=== PATIENT | male | born 1935 | race Caucasian/White ===

== ENCOUNTER 2023-06-30 04:26 | Inpatient (IN) | payer MEDICARE, OTHER, SELFPAY ==
[2023-06-30] VITALS (20 sets, daily range): BP systolic 85–145; BP diastolic 54–116; PULSE 84–140; RESP 19–28; TEMP 36.6–37.3; O2SAT 94–99; BMI 24.7
--- NOTE | ~2023-06-30 | XR_ITS ---
EXAMINATION: XR chest 1V portable DATE: 06/30/2023 05:16 INDICATION: Chest pain. Palpitations. TECHNIQUE: A single frontal view of the chest was obtained. COMPARISON: Chest 2 views 12/26/17 FINDINGS: There are calcified pleural plaques bilaterally. There are airspace opacities in the mid an d lower lung zones. No pleural effusion or pneumothorax. Cardiomegaly is noted. IMPRESSION: 1. Airspace opacities in the mid and lower lung zones, consistent with atelectasis/scarring versus pn eumonia. 2. Calcified pleural plaques, which may be seen with asbestosis exposure. 3. Cardiomegaly. Reviewed, dictated and finalized at location E. IMPRESSION: 1. Airspace opacities in the mid and lower lung zones, consistent with atelecta sis/scarring versus pneumonia. 2. Calcified pleural plaques, which may be seen with asbestosis exposure. 3. Cardiomegaly.
--- NOTE | ~2023-06-30 | XR_ITS ---
MODIFIED ESOPHAGRAM HISTORY: Aspiration pneumonia TECHNIQUE: Modified barium esophagram was performed on 07/02/2023. I administered fluoroscopy and per formed the exam with speech pathologist. Patient was seated for lateral fluoroscopic imaging for ing estion of thin liquids, pudding, solids and quantified amounts, followed by thin liquids in uncontrol led amounts. This was recorded on tape. A single fluoroscopic spot image was also recorded. The DAP f or this procedure was 1.602 Gycm2. The amount of fluoroscopy time used during this procedure was 2.6 minutes. FINDINGS: Oral stage: Adequate function. Pharyngeal stage: Reduced laryngeal elevation and tongue base retraction. There is laryngeal penetrat ion without aspiration with uncontrolled thin liquids and with pudding consistency both with and with out head flexion. Cervical/esophageal stage: Adequate function. IMPRESSION: Pharyngeal dysphagia with laryngeal penetration but without aspiration. Please correlate with speech pathologist findings and specific feeding recommendations. Reviewed, dictated and finalized at location A. IMPRESSION: Pharyngeal dysphagia with laryngeal penetration but without aspirat ion. Please correlate with speech pathologist findings and specific feeding re commendations.
--- NOTE | 2023-06-30 04:30 | ECG_ITS ---
Measurements Intervals Bennett Rate: 132 P: NM: 0 QRS: -25 QRSD: 89 T: 178 QT: 289 QTc: 428 Interpretive Statements ATRIAL FIBRILLATION WITH RAPID VENTRICULAR RESPONSE ST DEVIATION AND T-WAVE ABNORMALITY, CONSIDER ISCHEMIA Electronically Signed On 06-30-2023 12:59:42 CDT by Finn Calderon M.D.
[2023-06-30] MEDS: dilTIAZem HCl INJ 25 MG/5 ML VIAL 10 MG IV PUSH (04:39)
[2023-06-30] MEDS: ASPIRIN 81 MG CHEWABLE TABLET 324 MG PO (04:39)
[2023-06-30] MEDS: dilTIAZem 100 MG/100 ML 100 MG/100 ML BAG IV CONT (04:41)
--- NOTE | 2023-06-30 04:43 | ED.GENADULT ---
HPI - General Adult General Chief complaint: Chest Pain Stated complaint: cp Time Seen by Provider: 06/30/23 04:29 History of Present Illness HPI narrative: Patient 79-year-old gentleman who presents the emergency department with chief complaint of chest discomfort. Patient reports that he feels as though he has to take a deep breath and movement of the tightness in his chest whenever he takes a deep breath. Patient states that has no prior history of cardiac disease reports no prior history of a dysrhythmia. When EMS picked him up they found that he had a heart rates in the 190s he was given adenosine which slowed his heart rate down into the 150s with atrial fibrillation rhythm. Related Data Home Medications Medication Instructions Recorded Confirmed latanoprost 0.005 % eye drops drp 06/30/23 Allergies Allergy/AdvReac Type Severity Reaction Status Date / Time No Known Allergies Allergy Unknown Verified 06/30/23 04:33 Review of Systems Review of Systems: A 10 system review of systems was completed on the patient and is negative except for what is stated in the HPI. Nursing and ancillary documentation was reviewed. [facility] Past Medical History Medical History History of prostate cancer (2007) Hx of malignant neoplasm of colon Surgical History Surgical History History of cholecystectomy (2007) Family History Family History Mother Heart disease Social History Social History Smoking status: Former smoker Second hand tobacco smoke exposure: No Alcohol intake: current Drinks per week: 7 Alcohol use details: 1 glass wine daily Substance use: never Substance use type: does not use Living arrangements: with family Occupation/Education: retired Gender identity (if verbalized by the patient): Male Sexual Orientation (if Verbalized by the Patient): Straight or Heterosexual Spiritual care concerns: No Agree to blood products: Yes Exam Narrative: GENERAL: Well-appearing, well-nourished, and in no acute distress. HEAD: Normocephalic, atraumatic. EYES: PERRLA and EOMI. ENT: Nares clear, no rhinorrhea or epistaxis. Mucous membranes moist. NECK: Supple. CHEST: Clear to auscultation. No respiratory distress. HEART: Tachycardic rate and irregular rhythm. No murmur heard. Normal peripheral pulses. ABDOMEN: Soft, nontender, nondistended, normal active bowel sounds. EXTREMITIES: Normal range of motion. No edema. SKIN: Warm, dry, no rash. NEURO: No focal deficits. Alert and oriented x3. PSYCH: Normal mood and affect. Course Vital Signs Vital signs: Vital Signs Temperature 37.1 C 06/30/23 04:24 Pulse Rate 131 H 06/30/23 04:24 Respiratory Rate 23 H 06/30/23 04:24 Blood Pressure 130/108 H 06/30/23 04:24 Pulse Oximetry 97 06/30/23 04:24 Oxygen Delivery Room Air 06/30/23 04:24 Temperature 37.1 C 06/30/23 04:24 Pulse Rate 97 06/30/23 04:46 Respiratory Rate 22 H 06/30/23 04:45 Blood Pressure 119/78 06/30/23 04:46 Pulse Oximetry 95 06/30/23 04:45 Oxygen Delivery Room Air 06/30/23 04:31 Medical Decision Making [facility] Narrative Medical decision making narrative: Differential diagnosis electrolyte abnormality, ACS, new onset A-fib Patient was in atrial fibrillation with rapid ventricular response upon initial arrival. 10 mg of Cardizem were given to the patient and the patient was started on a Cardizem drip This is provided rate control Oratory studies were obtained which showed CBC within normal limits electrolytes showed a creatinine of 1.4 troponin was less than 0.012 BNP was 2060 Case was discussed with the hospitalist the patient was admitted to the hospital. Vital Signs Vital Sign
[2023-06-30 04:51] LABS: Basophils Absolute Auto 0.1 K/mm3 (0.0-0.1); Basophils Percent Auto 0.4 % (0.2-1.2); Eosinophils Percent Auto 0.2 % (0-4.4); Hemoglobin 16.3 g/dL (14.0-18.0); Immature Granulocyte Absolute 0.07 K/mm3 (0.00-0.031); Immature Granulocyte Percent A 0.6 % (0-0.5); Lymphocytes Absolute Auto 0.76 K/mm3 (0.9-3.2); Mean Corpuscular HGB Conc 33.3 g/dl (32-36); Mean Corpuscular Hemoglobin 28.5 pg (26-34); Mean Corpuscular Volume 85.8 fl (80-100); Mean Platelet Volume 10.5 fl (7.4-10.4); Monocytes Absolute Auto 0.9 K/mm3 (0.1-0.6); Monocytes Percent Auto 6.7 % (2.6-8.5); Neutrophils Absolute Auto 10.9 K/mm3 (1.3-6.7); Neutrophils Percent Auto 86.1 % (45.5-73.1); Platelet Count Result 245 k/mm3 (150-375); Red Blood Count 5.71 M/mm3 (4.6-6.20); Red Cell Distribution Width 13.8 % (11.5-14.5); White Blood Count 12.7 K/mm3 (4.5-10.0)
[2023-06-30 04:53] LABS: Alanine Aminotransferase 24 U/L (6-50); Albumin Level 4.8 g/dL (3.5-5.1); Alkaline Phosphatase 68 U/L (38-126); Anion Gap 8 mmol/L (8-16); Aspartate Amino Transferase 32 U/L (17-59); Bilirubin,Total 1.3 mg/dL (0.2-1.3); Blood Urea Nitrogen 16 mg/dL (9-20); Calcium 9.1 mg/dL (8.4-10.2); Carbon Dioxide 28 mmol/L (22-30); Chloride 100 mmol/L (98-107); Estimated CRCL calculation 33 ml/min; Estimated Glomerular Filt Rate 48; Glucose 132 mg/dL (65-110); Lipase 59 U/L (23-300); Potassium 4.6 mmol/L (3.4-5.0); Sodium 136 mmol/L (137-145)
[2023-06-30 05:02] LABS: INR 0.9; NT Pro B Type Natriuretic Pept 2060 pg/mL (19.9-100); Prothrombin Time 12.8 Seconds (11.1-14.7)
[2023-06-30 05:03] LABS: Partial Thromboplastin Time 32.4 SECONDS (22.3-36.8)
[2023-06-30 05:05] LABS: Troponin I < 0.012 ng/mL (0.000-0.034)
[2023-06-30] MEDS: HEPARIN SOD/D5W 100 UNITS/ML 25,000 UNITS/250 ML BAG 12 UNITS IV CONT (05:50)
[2023-06-30] MEDS: HEPARIN SODIUM 5,000 UNITS/ML VIAL 5500 UNITS IV PUSH (05:50)
--- NOTE | 2023-06-30 05:53 | PM.IMHP ---
H&P: HPI History of Present Illness Date/Time: 06/30/23 05:53 Chief Complaint: Chest pain shortness over Narrative: 79-year-old gentleman who has past medical history of colon cancer prostate cancer presents with chest pain and shortness of breath. Shortness of breath is worse with laying down. When EMS arrived at his home he was noted to have heart rate of 190 he received adenosine. On arrival to the hospital he was noted to have atrial fibrillation. He has been started on rate control with Cardizem and also anticoagulation with heparin. Patient states that when he takes deep breath he feels some pain towards his neck from his chest. He denies nausea vomiting headache dizziness. He denies fever chills sweating abdominal pain during bowel symptoms The liver is not a good historian as he has difficulty expressing himself Review of Systems Review of Systems: All systems reviewed & are unremarkable except as noted in HPI and below Constitutional: Constitutional: Reports as per HPI Cardiovascular: Cardiovascular: Reports chest pain and Reports palpitations PMFSH Past Medical History Medical History History of prostate cancer (2007) Hx of malignant neoplasm of colon Surgical History Surgical History History of cholecystectomy (2007) Family History Family History Mother Heart disease Social History Social History Smoking status: Former smoker Second hand tobacco smoke exposure: No Alcohol intake: current Drinks per week: 7 Alcohol use details: 1 glass wine daily Substance use: never Substance use type: does not use Living arrangements: with family Occupation/Education: retired Gender identity (if verbalized by the patient): Male Sexual Orientation (if Verbalized by the Patient): Straight or Heterosexual Spiritual care concerns: No Agree to blood products: Yes Meds Home Medications and Allergies Home Medications Medication Instructions Recorded Confirmed Type latanoprost 0.005 % eye drops drp 06/30/23 History Allergies Allergy/AdvReac Type Severity Reaction Status Date / Time No Known Allergies Allergy Unknown Verified 06/30/23 04:33 Vital Signs Vital Signs - 24 hr 06/30/23 04:24 06/30/23 04:31 06/30/23 04:31 Temperature 98.7 F Pulse Rate 131 H 140 H Respiratory Rate 23 H 27 H Blood Pressure 130/108 H 145/116 H Pulse Oximetry 97 96 96 Oxygen Delivery Room Air Room Air 06/30/23 04:41 06/30/23 04:45 06/30/23 04:31 Temperature Pulse Rate 133 H 98 135 H Respiratory Rate 22 H 19 Blood Pressure 145/116 H 145/116 H Pulse Oximetry 95 Oxygen Delivery 06/30/23 04:32 06/30/23 04:46 Temperature Pulse Rate 133 H 97 Respiratory Rate 24 H Blood Pressure 119/78 Pulse Oximetry Oxygen Delivery Exam Narrative: General : alert awake oriented not in distress HEENT: PERRLA extraocular movements intact Neck : supple no JVD Heart : S1 and S2 irregularly irregular tachy Chest : bilateral air entry no wheezing or crackles Abdomen : soft nontender bowel sounds present Extremities : no ankle edema Skin : no erythema or redness noted PATHOLOGY SECRETARY : no new neurological deficit H&P: Results Labs Labs: Short CBC 06/30/23 Range/Units 04:36 WBC 12.7 H (4.5-10.0) K/mm3 Hgb 16.3 (14.0-18.0) g/dL Hct 49.0 (42.0-52.0) % Plt Count 245 (150-375) k/mm3 BMP 06/30/23 04:36 Sodium 136 L Potassium 4.6 Chloride 100 Carbon Dioxide 28 BUN 16 Creatinine 1.40 H Glucose 132 H Calcium 9.1 Cardiac Enzymes 06/30/23 Range/Units 04:36 Troponin I < 0.012 (0.000-0.034) ng/mL Liver Function 06/30/23 Range/Units 04:36 Total Bilirubin 1.3 (0.2-1.3
--- NOTE | 2023-06-30 06:47 | ADMGEN ---
This patient, Cesar Jones, was admitted to IMU Room 231-01. Patient/family oriented to hospital policies and general routines including ID bracelet, bed and alarms, visiting hours, pain management, procedures, bathroom and other care routines, personal items, smoking policy, room service/diet, and visiting hours. Information on how to activate the Rapid Response Team has been discussed. Patient/Family are encouraged to report perceived risks to care and to ask questions if they do not understand what they are told or what they should do.
[2023-06-30 07:50] LABS: Basophils Percent Auto 0.3 % (0.2-1.2); Hemoglobin 15.4 g/dL (14.0-18.0); Immature Granulocyte Absolute 0.07 K/mm3 (0.00-0.031); Immature Granulocyte Percent A 0.5 % (0-0.5); Lymphocytes Absolute Auto 0.84 K/mm3 (0.9-3.2); Lymphocytes Percent Auto 6.1 % (18.3-44.2); Mean Corpuscular HGB Conc 32.8 g/dl (32-36); Mean Corpuscular Hemoglobin 28.2 pg (26-34); Mean Corpuscular Volume 85.9 fl (80-100); Mean Platelet Volume 10.7 fl (7.4-10.4); Monocytes Absolute Auto 1.1 K/mm3 (0.1-0.6); Monocytes Percent Auto 7.6 % (2.6-8.5); Neutrophils Absolute Auto 11.8 K/mm3 (1.3-6.7); Neutrophils Percent Auto 85.5 % (45.5-73.1); Platelet Count Result 235 k/mm3 (150-375); Red Blood Count 5.47 M/mm3 (4.6-6.20); Red Cell Distribution Width 13.7 % (11.5-14.5); White Blood Count 13.8 K/mm3 (4.5-10.0)
[2023-06-30 08:49] LABS: Troponin I < 0.012 ng/mL (0.000-0.034)
[2023-06-30] MEDS: carvediloL 3.125 MG TABLET PO (09:40)
[2023-06-30] MEDS: PANTOPRAZOLE SODIUM IV 40 MG VIAL IV PUSH (09:40)
[2023-06-30] MEDS: FUROSEMIDE INJ 40 MG/4 ML VIAL IV PUSH (09:43)
[2023-06-30] MEDS: VALSARTAN 40 MG TABLET PO (10:06)
[2023-06-30 10:38] LABS: Appearance Urine Clear (Clear); Bacteria Urine None Seen /hpf; Bilirubin Urine Negative (Negative); Blood Urine Trace (Negative); Color Urine Yellow (Yellow); Glucose Urine UA Negative (Negative); Ketones Urine 1+ mg/dL (Negative); Leukocyte Esterase Ur Negative LEU/UL (Negative); Nitrate Urine Negative (Negative); Non Pathogenic Casts 0-2; Protein Urine Negative (Negative); RBC Urine 0-2 /hpf (0-2); Specific Grav Ur 1.017 (1.001-1.035); Squamous Epithelial Cell Urine None seen /hpf (Few); Urobilinogen Urine 0.2 mg/dL (<2.0); WBC Urine 0-5 /hpf
[2023-06-30 10:44] LABS: Add Urine Microscopic? YES
--- NOTE | 2023-06-30 11:15 | PM.CNCAR ---
Assessment and Plan Assessment and plan (1) Atrial fibrillation with rapid ventricular response: Code(s): I48.91 - Unspecified atrial fibrillation Status: Acute Assessment and Plan: 87-year-old male with no known prior cardiac history. Admitted to the hospital with complaints of pleuritic chest pain. He was found to be in atrial fibrillation with RVR. -heart rate has improved with IV diltiazem which will be continued for now. Add metoprolol tartrate with holding parameters. -initiate anticoagulation with apixaban, dose may need to be modified based on renal function. -echocardiogram with Doppler is pending. -check thyroid panel -telemetry monitoring (2) Pleuritic chest pain: Code(s): R07.81 - Pleurodynia Status: Acute Assessment and Plan: Patient has been coughing for last several months, and there is suggestion of possible respiratory tract infection. Appropriate antibiotics as per primary team. Also undergoing workup for possible PE. (3) Renal insufficiency: Code(s): N28.9 - Disorder of kidney and ureter, unspecified Status: Acute Assessment and Plan: Monitor electrolytes and renal function. Management per primary team. History of Present Illness History of Present Illness Consult date/time: 06/30/23 11:15 Requesting physician: Derek Bender MD Reason For Visit: New Onset A-Fib with RVR Narrative: 87-year-old male with no known prior cardiac history. Patient presented to [facility] Emergency Room on 06/30/2023 with complaints of chest tightness that started early in the morning. He states that his chest discomfort gets worse with deep inspiration. Patient states that he has been coughing with scanty expectoration for months. Denied any palpitations, dizziness or syncope. He denies any known prior cardiac history including any history of clinical [place], angina, heart failure or any known arrhythmias. Patient's son was present in the patient's room states that his father does not usually see a physician on regular basis. Per ER notes, EMS found patient in tachycardia with heart rate in 190s, was apparently given adenosine with improvement of heart rate to 150s and the rhythm showed atrial fibrillation with RVR. EKG at presentation on my personal interpretation showed AFib with RVR, ventricular rate 132 beats per minute, ST-T abnormality. Chest x-ray showed airspace opacities in the mid and lower lung zones, consistent with atelectasis/scarring versus pneumonia, Calcified pleural plaques, which may be seen with asbestosis exposure, Cardiomegaly. Troponin x3 negative. NT proBNP elevated at 2060. Patient was initiated on IV diltiazem 5 mg per hour, with improvement in heart rate to 110s. Review of Systems Review of Systems: General: Negative for fever, chills, fatigue Psychological: Negative for anxiety, depression Ophthalmic: negative for loss of vision ENT: Negative for epistaxis, headaches Allergy and immunology: Negative for hives, nasal congestion Hematologic and lymphatic: Negative for overt bleeding problems Endocrine: Negative for hot flashes, palpitations Respiratory: Positive for cough with scanty expectoration, no hemoptysis; positive for dyspnea Cardiovascular: Positive for pleuritic chest pain Gastrointestinal: Negative for abdominal pain, nausea, vomiting, hematochezia Musculoskeletal: Negative for myalgia, joint pains Neurological: Negative for weakness Dermatological: Negative for rash, skin discoloration PMFSH Past Medical History Medical History History of prostate cancer (2007) Hx of malignant neoplasm of colon Surgical History Surgical History History of cholecystectomy (2007) Family History Family History Mother Heart disease Social History Social His
[2023-06-30 11:20] LABS: Troponin I < 0.012 ng/mL (0.000-0.034)
--- NOTE | 2023-06-30 11:31 | PM.IMPN ---
Progress Note: A&P Assessment and Plan (1) CKD (chronic kidney disease): Code(s): N18.9 - Chronic kidney disease, unspecified Status: Acute (2) Atrial fibrillation, new onset: Code(s): I48.91 - Unspecified atrial fibrillation Status: Acute (3) Atrial fibrillation with rapid ventricular response: Code(s): I48.91 - Unspecified atrial fibrillation Status: Acute Plan 87M w/ prostate cancer, has not seen a physician in a long time presents with pleuritic chest pain for a few weeks but worsened which cause him to see further eval. found to be in a fib w/ RVR. cardiology assisting, switching heparin to eliquis, diltiazem gtt still on. pending echo. trop negative. EKG non ischemic. CXR w/ some infiltrates vs pulm edema. BNP 1999 but clinically euvolemic, likely all 2/2 to RVR. check pro calcitonin, tsh, and d dimer. if d dimer positive check LE US with VQ scan. starting rocephin and zithromax for CAP. Subjective Date/time seen: 06/30/23 11:31 Interval history: pt reports improved symptoms but still with tight chest pain at ribs when taking deep breath Review of Systems Review of Systems: All systems reviewed & are unremarkable except as noted in HPI and below Exam Const: General: comfortable and no acute distress Resp: Effort & Inspection: normal respiratory effort Auscultation: crackles (scant/ diffuse) Cardio: Rate: tachycardic Rhythm: abnormal rhythm GI: Inspection: non-distended Auscultation: normal bowel sounds Extrem: General: no edema Objective Data Vital Signs Vital Signs: Vital Signs - 24 hr 06/30/23 04:24 06/30/23 04:31 06/30/23 04:31 Temperature 98.7 F Pulse Rate 131 H 140 H Respiratory Rate 23 H 27 H Blood Pressure 130/108 H 145/116 H Pulse Oximetry 97 96 96 Oxygen Delivery Room Air Room Air 06/30/23 04:41 06/30/23 04:45 06/30/23 04:31 Temperature Pulse Rate 133 H 98 135 H Respiratory Rate 22 H 19 Blood Pressure 145/116 H 145/116 H Pulse Oximetry 95 Oxygen Delivery 06/30/23 04:32 06/30/23 04:46 06/30/23 06:59 Temperature 97.8 F Pulse Rate 133 H 97 102 H Respiratory Rate 24 H 22 H Blood Pressure 119/78 127/95 H Pulse Oximetry 97 Oxygen Delivery 06/30/23 07:50 06/30/23 09:40 Temperature 98.4 F Pulse Rate 102 H 102 H Respiratory Rate 28 H Blood Pressure 108/70 Pulse Oximetry 95 Oxygen Delivery Meds/Results Medications: Active Medications Generic Name Dose Route Start Last Admin Trade Name Freq PRN Reason Stop Dose Admin Acetaminophen 650 mg 06/30/23 06:00 Acetaminophen 325 Mg Tablet PO Q8H PRN Mild Pain (1-3) or Fever Apixaban 5 mg 06/30/23 21:00 Apixaban 5 Mg Tablet PO Q12HR [facility] Aspirin 81 mg 07/01/23 08:00 Aspirin 81 Mg Chewable Tablet PO DAILY@0800 [facility] Heparin Sodium (Porcine) 2,500 units 06/30/23 05:32 Heparin Sodium 5,000 Units/Ml Vial IV PUSH PRN PRN aPTT 55 - 70 seconds Diltiazem HCl 100 mg in 100 mls @ 5 mls/hr 06/30/23 04:29 06/30/23 04:41 Cardizem 100 Mg/100 Ml IV CONT 07/01/23 00:28 5 mg/hr .Q20H STA 5 mls/hr Administration Protocol 5 MG/HR Heparin Sodium/Dextrose 25,000 units in 250 mls @ 12 mls/hr 06/30/23 05:35 06/30/23 05:50 Heparin Sodium/D5w 100 Units/Ml IV CONT 1,200 units/hr .[id number] GELACIO 12 mls/hr Administration Protocol 1,200 UNITS/HR Ceftriaxone Sodium 2 gm in 100 mls @ 200 mls/hr 06/30/23 11:30 Rocephin 2 Gm/Ns 100 Ml IVPB Q24H GELACIO Azithromycin 500 mg in 250 mls @ 250 mls/hr 06/30/23 11:28 Zithromax IVPB 06/30/23 12:27 ONCE ONE Azithromycin 250 mg/ Dextrose 250 mls @ 250 mls/hr 07/01/23 05:00 IVPB Q24H [facility] Melatonin 5 mg 06/30/23 06:00 Melatonin 5 Mg Tablet PO HS PRN Insomnia Metoprolol Tartrate 25 mg 06/30/23 21:00 Metoprolol Tartrate 25 Mg Tablet PO Q12HR GELACIO Morphine Sulfate 2 mg 06/30/23 06
[2023-06-30 12:55] LABS: D Dimer 0.48 ug/mL (<0.48)
[2023-06-30] MEDS: cefTRIAXone 2 GM/NS 100 ML 2 GM/100 ML BAG IVPB (13:11)
[2023-06-30 13:20] LABS: Procalcitonin 0.5 ng/mL
[2023-06-30 13:30] LABS: Influenza A QL RT-PCR Negative (Negative); Influenza B QL RT-PCR Negative (Negative); RSV RNA, RT-PCR Negative (Negative); SARS-CoV-2 RNA PCR Negative (Negative)
[2023-06-30] MEDS: AZITHROMYCIN 500 MG/NS 250 ML 500 MG/250 ML BAG 250 MG IVPB (14:01)
[2023-06-30] MEDS: APIXABAN 5 MG TABLET PO (21:39)
[2023-07-01] VITALS (18 sets, daily range): BP systolic 91–111; BP diastolic 59–72; PULSE 50–108; RESP 16–20; TEMP 36.1–36.6; O2SAT 95–98
[2023-07-01 04:36] LABS: Basophils Percent Auto 0.4 % (0.2-1.2); Eosinophils Absolute Auto 0.1 K/mm3 (0-0.3); Eosinophils Percent Auto 0.9 % (0-4.4); Hemoglobin 14.7 g/dL (14.0-18.0); Immature Granulocyte Absolute 0.04 K/mm3 (0.00-0.031); Immature Granulocyte Percent A 0.4 % (0-0.5); Lymphocytes Absolute Auto 1.74 K/mm3 (0.9-3.2); Lymphocytes Percent Auto 16.9 % (18.3-44.2); Mean Corpuscular HGB Conc 34.2 g/dl (32-36); Mean Corpuscular Hemoglobin 28.7 pg (26-34); Mean Platelet Volume 10.7 fl (7.4-10.4); Monocytes Absolute Auto 0.9 K/mm3 (0.1-0.6); Neutrophils Absolute Auto 7.4 K/mm3 (1.3-6.7); Neutrophils Percent Auto 72.4 % (45.5-73.1); Platelet Count Result 202 k/mm3 (150-375); Red Blood Count 5.12 M/mm3 (4.6-6.20); Red Cell Distribution Width 13.5 % (11.5-14.5); White Blood Count 10.3 K/mm3 (4.5-10.0)
[2023-07-01 04:53] LABS: Anion Gap 9 mmol/L (8-16); Blood Urea Nitrogen 18 mg/dL (9-20); Calcium 8.3 mg/dL (8.4-10.2); Carbon Dioxide 23 mmol/L (22-30); Chloride 103 mmol/L (98-107); Estimated CRCL calculation 32 ml/min; Estimated Glomerular Filt Rate 52; Glucose 118 mg/dL (65-110); Magnesium 2.3 mg/dL (1.6-2.3); Potassium 3.7 mmol/L (3.4-5.0); Sodium 135 mmol/L (137-145)
[2023-07-01 05:04] LABS: Procalcitonin 0.6 ng/mL
--- NOTE | 2023-07-01 06:02 | ECHO_ITS ---
Patient Info Name: Cesar Jones Age: 87 years : 1935 Gender: Male Ht: 70 in Wt: 150 lbs BSA: 1.83 m2 HR: 71 bpm BP: 108 / 63 mmHg Heart Rhythm: Atrial Fibrillation Technical Quality: Fair Exam Date: 07/01/2023 10:35 AM Exam Location: [facility] Patient Status: Inpatient Admit Date: 07/01/2023 Staff Ordering Physician: Osman Mora MD Quick Sketch Artist: Eloise Ashley RDCS Attending Provider: Osman Mora MD Referring Physician: Morgan NUÑEZ; Exam Type: CA echo doppler color flow Study Info Indications - AFIB, CHF Complete two-dimensional, color flow and Doppler transthoracic echocardiogram is performed. Summary 1. Complete two-dimensional, color flow and Doppler transthoracic echocardiogram is performed. 2. Left ventricular chamber dimension is normal. 3. Left ventricular systolic function is moderately reduced, estimated at 35-40%. 4. There is no increased left ventricular wall thickness. 5. Right ventricular systolic function is reduced. TAPSE 1.2. 6. Right ventricular chamber dimension is normal. 7. Right atrial chamber dimension is moderate to severely enlarged. 8. There is trace mitral valve regurgitation. 9. There is mild tricuspid valve regurgitation. 10. No pulmonary hypertension, estimated pulmonary arterial systolic pressure is 30 mmHg. 11. The mitral valve annulus is moderately calcified. 12. There is no aortic valve stenosis. Left Ventricle Left ventricular chamber dimension is normal. Left ventricular systolic function is moderately reduced, estimated at 35-40%. There is no increased left ventricular wall thickness. Right Ventricle Right ventricular chamber dimension is normal. Right ventricular systolic function is reduced. TAPSE 1.2. Linear artifact in right ventricle suggestive of catheter(s), pacemaker lead(s), or ICD lead(s). Left Atria Left atrial chamber dimension is mildly enlarged. Right Atria Right atrial chamber dimension is moderate to severely enlarged. Aortic Valve The aortic valve is probable trileaflet. There is mild aortic valve sclerosis. There is no aortic valve stenosis. There is no aortic valve regurgitation. Pulmonic Valve The pulmonic valve is not well visualized. Mitral Valve The mitral valve has thickened leaflets. There is trace mitral valve regurgitation. The mitral valve annulus is moderately calcified. Tricuspid Valve The tricuspid valve leaflets are normal. There is mild tricuspid valve regurgitation. No pulmonary hypertension, estimated pulmonary arterial systolic pressure is 30 mmHg. Pericardium/Pleural The pericardium appears normal. There is no pericardial effusion. Inferior Vena Cava Normal inferior vena cava with <50% collapse upon inspiration consistent with elevated right atrial pressure, 10 mmHg. Aorta The aortic root size at the sinus of Valsalva is normal. The prox ascending aorta size is normal. There is mild aortic atherosclerosis. Left Ventricular Outflow Tract Name Value Normal LVOT 2D LVOT Diameter 2.0 cm LVOT Doppler LVOT Peak Gradient 1 mmHg LVOT Mean Gradient 0 mmHg LVOT VTI 9 cm
--- NOTE | 2023-07-01 07:45 | PC.NURSE ---
Resting in bed resp even and nonlabored. Congestion with productive cough. O2 sat 74% on 3L. Increased to 12L high flow NC with O2 sats 97%.
[2023-07-01] MEDS: dilTIAZem 100 MG/100 ML 100 MG/100 ML BAG IV CONT (09:19)
[2023-07-01] MEDS: METOPROLOL TARTRATE 25 MG TABLET PO (09:20)
[2023-07-01] MEDS: ASPIRIN 81 MG CHEWABLE TABLET PO (09:20)
[2023-07-01] MEDS: PANTOPRAZOLE SODIUM IV 40 MG VIAL IV PUSH (09:20)
[2023-07-01] MEDS: APIXABAN 5 MG TABLET PO ×2 (09:20→21:10)
--- NOTE | 2023-07-01 12:30 | PM.PNCARD ---
Progress Note: A&P Assessment and Plan (1) Atrial fibrillation with rapid ventricular response: Code(s): I48.91 - Unspecified atrial fibrillation <PRISCILLA Gonzalez - Last Filed: 07/01/23 13:23> Status: Acute <PRISCILLA Gonzalez - Last Filed: 07/01/23 13:23> Assessment and Plan: 87-year-old male with no known prior cardiac history. Admitted to the hospital with complaints of pleuritic chest pain. He was found to be in atrial fibrillation with RVR. -heart rate has improved with IV diltiazem and p.o. metoprolol. Will discontinue diltiazem gtt and increase metoprolol dose. If rate remains controlled, would anticipate discharge tomorrow. -initiate anticoagulation with apixaban, dose may need to be modified based on renal function. -echocardiogram with Doppler is pending. -telemetry monitoring <PRISCILLA Gonzalez - Last Filed: 07/01/23 13:23> (2) Pleuritic chest pain: Code(s): R07.81 - Pleurodynia <PRISCILLA Gonzalez - Last Filed: 07/01/23 13:23> Status: Acute <PRISCILLA Gonzalez - Last Filed: 07/01/23 13:23> Assessment and Plan: Patient has been coughing for last several months, and there is suggestion of possible respiratory tract infection. Appropriate antibiotics as per primary team. Also undergoing workup for possible PE. <PRISCILLA Gonzalez - Last Filed: 07/01/23 13:23> (3) Renal insufficiency: Code(s): N28.9 - Disorder of kidney and ureter, unspecified <PRISCILLA Gonzalez - Last Filed: 07/01/23 13:23> Status: Acute <PRISCILLA Gonzalez - Last Filed: 07/01/23 13:23> Assessment and Plan: Monitor electrolytes and renal function. Management per primary team. <PRISCILLA Gonzalez - Last Filed: 07/01/23 13:23> Assessment and Plan: ATTENDING ADDENDUM: I agree with the above documentation and plan of care as outlined. <Micha Clement MD - Last Filed: 07/01/23 15:37> Subjective Date/time seen: 07/01/23 12:30 <PIRSCILLA Gonzalez - Last Filed: 07/01/23 13:23> Interval history: Cardiology follow up for Afib Rate controlled on low dose IV diltiazem and low dose metoprolol. No longer having chest pain with deep breathing. No palpitations, shortness of breath. <PRISCILLA Gonzalez - Last Filed: 07/01/23 13:23> Review of Systems Review of Systems: General: Negative for fever, chills, fatigue Psychological: Negative for anxiety, depression Ophthalmic: negative for loss of vision ENT: Negative for epistaxis, headaches Allergy and immunology: Negative for hives, nasal congestion Hematologic and lymphatic: Negative for overt bleeding problems Endocrine: Negative for hot flashes, palpitations Respiratory: Positive for cough with scanty expectoration, no hemoptysis; positive for dyspnea Cardiovascular: Positive for pleuritic chest pain Gastrointestinal: Negative for abdominal pain, nausea, vomiting, hematochezia Musculoskeletal: Negative for myalgia, joint pains Neurological: Negative for weakness Dermatological: Negative for rash, skin discoloration <PRISCILLA Gonzalez - Last Filed: 07/01/23 13:23> Exam Const: General: comfortable, no acute distress, alert and awake <PRISCILLA Gonzalez - Last Filed: 07/01/23 13:23> Orientation/consciousness: patient oriented x3 <PRISCILLA Gonzalez - Last Filed: 07/01/23 13:23> HENMT: Head: normal to inspection <PRISCILLA Gonzalez - Last Filed: 07/01/23 13:23> Eyes: General: appearance normal, both eyes and all related structures <PRISCILLA Gonzalez - Last Filed: 07/01/23 13:23> Pupils: Equal, round and reactive pupils present <PRISCILLA Gonzalez - Last Filed: 07/01/23 13:23> Neck: Neck: normal visual inspection, supple and no JVD <PRISCILLA Gonzalez - Last Filed: 07/01/23 13:23> Carotids: normal carotid upstroke <PRISCILLA Gonzalez - Last Filed: 07/01/23 13:23> Resp: Effort & Inspection: normal r
[2023-07-01] MEDS: cefTRIAXone 2 GM/NS 100 ML 2 GM/100 ML BAG IVPB (14:01)
[2023-07-01] MEDS: METOPROLOL TARTRATE TAB 25 MG, METOPROLOL TARTRATE TAB 12.5 MG 37.5 MG PO ×2 (14:02→21:14)
--- NOTE | 2023-07-01 14:28 | PM.IMPN ---
Progress Note: A&P Assessment and Plan (1) Renal insufficiency: Code(s): N28.9 - Disorder of kidney and ureter, unspecified Status: Acute (2) Pleuritic chest pain: Code(s): R07.81 - Pleurodynia Status: Acute (3) CKD (chronic kidney disease): Code(s): N18.9 - Chronic kidney disease, unspecified Status: Acute (4) Atrial fibrillation, new onset: Code(s): I48.91 - Unspecified atrial fibrillation Status: Acute (5) Atrial fibrillation with rapid ventricular response: Code(s): I48.91 - Unspecified atrial fibrillation Status: Acute (6) Dermatitis: Code(s): L30.9 - Dermatitis, unspecified Status: Acute (7) Dyspnea: Code(s): R06.00 - Dyspnea, unspecified Status: Acute (8) Wheezing: Code(s): R06.2 - Wheezing Status: Acute (9) Primary open-angle glaucoma, bilateral, mild stage: Code(s): H40.1131 - Primary open-angle glaucoma, bilateral, mild stage Status: Acute Plan 1. afib rvr appreciate cardiology consultation previously on dilt drip and po metoprolol. now rate controlled, switched to PO metop 37.5 mg q8 tartrate pleuritic cp gone on eliquis now echo with doppler pending 2. Pleuritic cp asp pneumonia vs afib rvr swallow eval with ST abnormalities on cxr stopped rocephin/azithromycin, started augmentin d dimer neg 3. Acute confusion related to his [place] hx of dementia, needs f/u with PCP 4. hx of malignancy (prostate +/ colon) f/u pea, cea, ca19-9 talked with son today for ~ 25 min after evaluation Time Spent With Patient Time: 1 hr Subjective Date/time seen: 07/01/23 14:28 Interval history: pt was feeling not heard this morning. reports [place] and was confused with discussion with nurses. apparently called 911 instead of calling 91 to make an outside call. Per son, pt was confused in his room walking around disoriented. On my exam, pt is alert, oriented, aox4, just [place]. Review of Systems Review of Systems: no complaints. Exam Narrative: Const:?? General: comfortab le and no acute di stress Resp:?? Effort & Inspectio n: normal respirat ory effort? Auscul tation: crackles ( scant/ diffuse) Cardio:?? Rate: tachycardic? Rhythm: abnormal rhythm GI:?? Inspection: non-di stended? Auscultat ion: normal bowel sounds Extrem:?? General: no edema Objective Data Vital Signs Vital Signs: Vital Signs - 24 hr 06/30/23 16:00 06/30/23 18:20 06/30/23 16:00 Temperature 98.3 F Pulse Rate 94 Respiratory Rate 20 Blood Pressure 85/54 L 131/79 Pulse Oximetry 94 97 Oxygen Delivery Room Air 06/30/23 16:00 06/30/23 18:00 06/30/23 20:00 Temperature 98.4 F Pulse Rate 87 93 87 Respiratory Rate 20 Blood Pressure 111/71 Pulse Oximetry 95 Oxygen Delivery 06/30/23 20:00 06/30/23 20:00 06/30/23 21:40 Temperature Pulse Rate 87 93 95 Respiratory Rate 20 Blood Pressure Pulse Oximetry 95 Oxygen Delivery Room Air 06/30/23 23:29 07/01/23 00:00 07/01/23 00:00 Temperature 99.1 F Pulse Rate 93 93 84 Respiratory Rate 20 20 Blood Pressure 106/59 L Pulse Oximetry 97 97 Oxygen Delivery Room Air 07/01/23 02:00 06/30/23 22:00 07/01/23 03:35 Temperature 97.9 F Pulse Rate 92 90 71 Respiratory Rate 20 Blood Pressure 108/63 Pulse Oximetry 96 Oxygen Delivery 07/01/23 04:00 07/01/23 04:00 07/01/23 06:00 Temperature Pulse Rate 100 71 72 Respiratory Rate 20 Blood Pressure Pulse Oximetry 96 Oxygen Delivery Room Air 07/01/23 08:00 07/01/23 09:19 07/01/23 09:20 Temperature 96.9 F L Pulse Rate 95 93 93 Respiratory Rate 20 Blood Pressu
[2023-07-01 17:03] LABS: Carcinoembryonic Antigen 3.2 ng/mL (0.0-3.0)
[2023-07-01] MEDS: AMOXICILLIN/CLAVULANATE K 875-125 MG TAB 1 TABLET PO (21:10)
[2023-07-02] VITALS (22 sets, daily range): BP systolic 108–150; BP diastolic 52–86; PULSE 74–120; RESP 14–20; TEMP 36.2–36.6; O2SAT 95–99
[2023-07-02] MEDS: METOPROLOL TARTRATE TAB 25 MG, METOPROLOL TARTRATE TAB 12.5 MG 37.5 MG PO ×3 (06:12→21:16)
[2023-07-02] MEDS: ASPIRIN 81 MG CHEWABLE TABLET PO (08:41)
[2023-07-02] MEDS: AMOXICILLIN/CLAVULANATE K 875-125 MG TAB 1 TABLET PO ×2 (08:41→21:17)
[2023-07-02] MEDS: APIXABAN 5 MG TABLET PO ×2 (08:41→21:17)
[2023-07-02] MEDS: PANTOPRAZOLE SODIUM IV 40 MG VIAL IV PUSH (08:41)
--- NOTE | 2023-07-02 14:52 | PCSTNOTE ---
Please refer to the Modified Barium Swallow Evaluation in the EMR.
--- NOTE | 2023-07-02 17:59 | PM.IMPN ---
Progress Note: A&P Assessment and Plan (1) Renal insufficiency: Code(s): N28.9 - Disorder of kidney and ureter, unspecified Status: Acute (2) Pleuritic chest pain: Code(s): R07.81 - Pleurodynia Status: Acute (3) CKD (chronic kidney disease): Code(s): N18.9 - Chronic kidney disease, unspecified Status: Acute (4) Atrial fibrillation, new onset: Code(s): I48.91 - Unspecified atrial fibrillation Status: Acute (5) Atrial fibrillation with rapid ventricular response: Code(s): I48.91 - Unspecified atrial fibrillation Status: Acute (6) Dermatitis: Code(s): L30.9 - Dermatitis, unspecified Status: Acute (7) Dyspnea: Code(s): R06.00 - Dyspnea, unspecified Status: Acute (8) Wheezing: Code(s): R06.2 - Wheezing Status: Acute (9) Primary open-angle glaucoma, bilateral, mild stage: Code(s): H40.1131 - Primary open-angle glaucoma, bilateral, mild stage Status: Acute Plan 1. afib rvr appreciate cardiology consultation previously on dilt drip and po metoprolol. now rate controlled, switched to PO metop 37.5 mg q8 tartrate pleuritic cp gone on eliquis now echo with doppler pending 07/02 will cardiovert pt on amiodarone drip tonight in imu he does not have any indications for assisted afib, all indications are that this is new onset afib triggered by aspiration pneumonia he has new onset afib, on eliquis for the past 3 days, with no thrombus on echo if he converts, convert to oral amio 200 mg po BID can continue metop 37.5 mg q8 or a lower dose as necessary 2. Pleuritic cp asp pneumonia vs afib rvr swallow eval with ST abnormalities on cxr stopped rocephin/azithromycin, started augmentin d dimer neg Aspiration pneumonia on CXR should go home on augmentin (would treat for 7 days total) 3. Acute confusion related to his [place] hx of dementia, needs f/u with PCP 4. hx of malignancy (prostate +/ colon) f/u pea, cea, ca19-9 CEA was high. discussed f/u with son and pt 5. Aspiration pneumonia failed barium swallow IMPRESSION: Pharyngeal dysphagia with laryngeal penetration but without aspiration.? Please correlate with speech pathologist findings and specific feeding recommendations. diet adjusted with rn and speech therapist talked with son today for ~ 25 min after evaluation plan for dc tomorrow. assume pt will be in NSR Subjective Date/time seen: 07/02/23 17:59 Interval history: no issues or complaints. ready to go home. Review of Systems Review of Systems: n/a Exam Narrative: GENERAL:? Alert, oriented, no acute distress MENTAL STATUS:?? affect appropriate to mood EYES:? Extraocular movements intact, no pallor EARS:? External ears appear normal, hearing grossly normal NOSE:? Normal and patent, no discharge MOUTH:? Mucous membranes moist, tongue normal NECK:? Supple, no JVD CHEST:? Good respiratory effort, coarse breath sounds HEART:? Tachycardic, irregularly irregular rhythm ABDOMEN:? Soft, nontender NEUROLOGICAL:? Alert, oriented, normal speech, no gross motor deficits MUSCULOSKELETAL:??No major deformity, no amputation EXTREMITIES:? No pedal edema, no clubbing, no cyanosis SKIN:?no rash on the exposed area, no? cyanosis PSYCHIATRIC:? Normal mood, appropriate affect Objective Data Vital Signs Vital Signs: Vital Signs - 24 hr 07/01/23 19:35 07/01/23 18:00 07/01/23 21:14 Temperature 97.1 F L Pulse Rate 96 92 91 Respiratory Rate 16 Blood Pressure 104/72 Pulse Oximetry 95 Oxygen Delivery 07/01/23 20:00 07/01/23 20:00 07/01/23 22:00 Temperature Pulse Rate 91 89 90 Respiratory Rate 16 Blood Pressure Pulse Oximetry 95 Oxygen Delivery Room Air 07/02/23 00:00 07/02/23 00:00 07/02/23 03:55 Temperature 97.4 F L 97.4 F L Pulse Rate 87 87 115 H Respiratory Rate 20 20 20 Blood Pressure 113/62 118/84 Pulse Oximetry 97 97 99 Oxygen Delivery Room Air
[2023-07-02] MEDS: AMIODARONE 150 MG/D5W 100 ML 150 MG/100 ML BAG 600 MG IV CONT (18:08)
[2023-07-02] MEDS: AMIODARONE 360 MG/D5W 200 ML 360 MG/200 ML BAG 33.33 MG IV CONT (18:08)
[2023-07-02] MEDS: AMIODARONE 360 MG/D5W 200 ML 360 MG/200 ML BAG 16.67 MG IV CONT (23:49)
[2023-07-03] VITALS (7 sets, daily range): BP systolic 112–128; BP diastolic 75–80; PULSE 70–89; RESP 14–20; TEMP 36.5–36.7; O2SAT 98–99
[2023-07-03] MEDS: METOPROLOL TARTRATE TAB 25 MG, METOPROLOL TARTRATE TAB 12.5 MG 37.5 MG PO (05:11)
--- NOTE | 2023-07-03 06:08 | PC.NURSE ---
RN answered patient's bed alarm. 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 RN stated that he was. Patient answered orientation questions appropriately. After further investigation it appears that the patient isn't confused but is confused about his care. Patient states he was told he could discharged and then was told by another doctor he couldn't. Patient stated that he feels the doctors aren't talking to each other. Patient stated he has a sick at home and has had to have people take off work to come get him. RN acknowledged patient's frustration and explained the patient's current care plan. RN told patient she would relay his concerns to the day team.
--- NOTE | 2023-07-03 06:37 | PC.NURSE ---
0627: RN and CCT to bedside due to patient being off telemetry. Patient responsive but when SPO2 was plugged back into the monitor the patient was satting 58%. RN attempted to put the patient's BiPap on to which the patient became combative. RN turned the patient's nasal cannula up to 15L. Patient was able to answer orientation questions. RN explained the risks of not wearing oxygen. Patient stated that the oxygen just falls off . RN asked the patient if he wanted it taped to his face. The patient said yes. RN complied. Patient currently satting 100% on 3LNC.
[2023-07-03] MEDS: AMOXICILLIN/CLAVULANATE K 875-125 MG TAB 1 TABLET PO (08:13)
[2023-07-03] MEDS: ASPIRIN 81 MG CHEWABLE TABLET PO (08:13)
[2023-07-03] MEDS: PANTOPRAZOLE SODIUM IV 40 MG VIAL IV PUSH (08:13)
[2023-07-03] MEDS: APIXABAN 5 MG TABLET PO (08:13)
--- NOTE | 2023-07-03 11:27 | PM.DS ---
DS: Admitting Diagnosis Discharge Date July 03, 2020 Admitting Diagnosis AFib RVR DS: Discharge Diagnosis Discharge Diagnosis (1) Renal insufficiency: Code(s): N28.9 - Disorder of kidney and ureter, unspecified Status: Acute (2) Pleuritic chest pain: Code(s): R07.81 - Pleurodynia Status: Acute (3) CKD (chronic kidney disease): Code(s): N18.9 - Chronic kidney disease, unspecified Status: Acute (4) Atrial fibrillation, new onset: Code(s): I48.91 - Unspecified atrial fibrillation Status: Acute (5) Atrial fibrillation with rapid ventricular response: Code(s): I48.91 - Unspecified atrial fibrillation Status: Acute (6) Dermatitis: Code(s): L30.9 - Dermatitis, unspecified Status: Acute (7) Dyspnea: Code(s): R06.00 - Dyspnea, unspecified Status: Acute (8) Wheezing: Code(s): R06.2 - Wheezing Status: Acute (9) Primary open-angle glaucoma, bilateral, mild stage: Code(s): H40.1131 - Primary open-angle glaucoma, bilateral, mild stage Status: Acute Plan 1. afib rvr appreciate cardiology consultation previously on dilt drip and po metoprolol. now rate controlled, switched to PO metop 37.5 mg q8 tartrate pleuritic cp gone on eliquis now echo with doppler pending 07/02 will cardiovert pt on amiodarone drip tonight in imu he does not have any indications for detention afib, all indications are that this is new onset afib triggered by aspiration pneumonia he has new onset afib, on eliquis for the past 3 days, with no thrombus on echo if he converts, convert to oral amio 200 mg po BID can continue metop 37.5 mg q8 or a lower dose as necessary 2. Pleuritic cp asp pneumonia vs afib rvr swallow eval with ST abnormalities on cxr stopped rocephin/azithromycin, started augmentin d dimer neg Aspiration pneumonia on CXR should go home on augmentin (would treat for 7 days total) 3. Acute confusion related to his [place] hx of dementia, needs f/u with PCP 4. hx of malignancy (prostate +/ colon) f/u pea, cea, ca19-9 CEA was high. discussed f/u with son and pt 5. Aspiration pneumonia failed barium swallow IMPRESSION: Pharyngeal dysphagia with laryngeal penetration but without aspiration.? Please correlate with speech pathologist findings and specific feeding recommendations. diet adjusted with rn and speech therapist talked with son today for ~ 25 min after evaluation plan for dc tomorrow. assume pt will be in NSR DS: Summary Hospital Course Hospital Course: Patient was admitted AFib RVR, medications were adjusted cardiology was consulted. No further cardiac workup needed hospital. He will follow-up with Cardiology and his primary care physician patient be on a beta-spencer for rate control. No anticoagulation. Otherwise he did have some poss aspiration pneumonia and antibiotics will be continued discharge. Time Spent with Patient Time attestation: Total time spent providing and/or coordinating discharge services: Exam Narrative: GENERAL:? Alert, oriented, no acute distress MENTAL STATUS:?? affect appropriate to mood EYES:? Extraocular movements intact, no pallor EARS:? External ears appear normal, hearing grossly normal NOSE:? Normal and patent, no discharge MOUTH:? Mucous membranes moist, tongue normal NECK:? Supple, no JVD CHEST:? Good respiratory effort, coarse breath sounds HEART:? Tachycardic, irregularly irregular rhythm ABDOMEN:? Soft, nontender NEUROLOGICAL:? Alert, oriented, normal speech, no gross motor deficits MUSCULOSKELETAL:??No major deformity, no amputation EXTREMITIES:? No pedal edema, no clubbing, no cyanosis SKIN:?no rash on the exposed area, no? cyanosis PSYCHIATRIC:? Normal mood, appropriate affect Discharge Plan Discharge Attending physician on discharge: Tai Gonsalez Consulting providers: Finn Calderon Discharging Clinician: Tai Gonsalez Patient Dispositio
--- NOTE | 2023-07-03 13:46 | PCSTNOTE ---
Patient was seen for a non-chargeable ST visit at time of discharge. Patient and daughter were instructed in the use of thickener in all liquids and how to purchase thickener for the home. He was also instructed to lean forward (he states it feels better when he swallows) and to tuck chin down toward chest--not to chest but toward chest-- to swallow (head flexion). We reviewed use of straws and how to avoid throwing the head back to swallow and to avoid multiple swallows. Finally, continuing direct swallowing therapy was encouraged through [facility] or another convenient location as desired. Both patient and daughter voiced understanding of all instructions and recommendations.
[2023-07-03 17:59] LABS: PSA, Free <0.01 ng/mL; PSA, Total <0.1 ng/mL (<=4.0)
[2023-07-04 20:54] LABS: CA 19-9 <3 U/mL (<34)
== END 2023-07-03 13:14 | disposition home or self-care (01) | DRG 308 ==
LOC: ANHED 05:31 → ANHIMU 05:53
PROVIDERS: General Practice; Internal Medicine; Admitting Provider Internal Medicine; Emergency Provider Emergency Medicine; PCP Family Medicine Adolescent Medicine; Visit Provider Chiropractor
DX: I48.91 Unspecified atrial fibrillation (principal); J69.0 Pneumonitis due to inhalation of food and vomit; N18.9 Chronic kidney disease, unspecified; H40.1131 Primary open-angle glaucoma, bilateral, mild stage; F03.90 Unspecified dementia, unspecified severity, without behavioral disturbance, psychotic disturbance, mood disturbance, and anxiety; L30.9 Dermatitis, unspecified; R13.13 Dysphagia, pharyngeal phase; I50.9 Heart failure, unspecified; Z20.822 Contact with and (suspected) exposure to COVID-19; Z85.46 Personal history of malignant neoplasm of prostate; Z85.038 Personal history of other malignant neoplasm of large intestine; Z90.49 Acquired absence of other specified parts of digestive tract; Z87.891 Personal history of nicotine dependence
CPT/HCPCS: 36415; 71045; 80048; 80053; 81001; 82378; 83690; 83735; 83880; 84145; 84153; 84154; 84443; 84484; 85025; 85380; 85610; 85730; 86301; 87637; 92610; 92611; 93005; 93306; 96365; 96367; 96375; 99285; A9270; C9113; G0378; J0282; J0456; J0696; J1644; J1940; J7060

== ENCOUNTER 2023-10-30 12:38 | Emergency (ER) | payer MEDICARE, OTHER, SELFPAY ==
[2023-10-30] VITALS (13 sets, daily range): BP systolic 114–146; BP diastolic 71–94; PULSE 87–113; RESP 12–19; TEMP 36.3; O2SAT 99–100
--- NOTE | ~2023-10-30 | XR_ITS ---
XR chest 2V DATE: 10/30/2023 13:23 INDICATION: Shortness of breath on exertion TECHNIQUE: PA and lateral views COMPARISON: 06/28/2023 portable AP chest FINDINGS: Prominent bilateral pleural calcified plaques are noted, suggesting prior asbestos exposure . Heart size is within normal limits. Minimal aortic unfolding. No hilar or mediastinal enlargement. No pulmonary infiltrate or consolidation, pleural effusion or pulmonary vascular congestion or pneumo thorax. Surgical clips, right upper quadrant, consistent with cholecystectomy. Osteopenia. Thoracolumbar dextroscoliosis and degenerative spurring. 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 ERTY CLERK IMPRESSION: Extensive bilateral calcified pleural plaques suggesting prior asbe stos exposure No active cardiopulmonary disease
--- NOTE | ~2023-10-30 | CT_ITS ---
EXAMINATION: CTA chest PE protocol DATE: 10/30/2023 18:06 INDICATION: Shortness of breath TECHNIQUE: Computed tomography (CT) pulmonary angiogram of the chest was performed with 100 mL Omnipa que-350 intravenous contrast. Additional 3D reconstructions utilizing coronal maximum intensity proje ction (MIP) were performed. Automated exposure control and iterative reconstruction technique were em ployed. The dose-length product was 273.78 mGy-cm. COMPARISON: None FINDINGS: No pulmonary embolism. There are scattered bilateral calcified pleural plaques consistent with prior asbestos exposure. There is some associated mild atelectasis/scarring in the left lower lobe. No pneu monia, pulmonary edema or pleural effusion. Heart size is normal. Atherosclerotic coronary artery gia cifications. No pericardial effusion. Thoracic aorta is normal in caliber. No pathologically enlarged thoracic lymphadenopathy. There are few small low-attenuation hepatic cysts the largest measuring 1. 7 cm. Cholecystectomy clips in the gallbladder fossa. Visualized upper abdomen is otherwise unremarka ble. There are bridging osteophytes at multiple levels consistent with diffuse idiopathic skeletal hy perostosis (DISH). IMPRESSION: 1. No pulmonary embolism or other acute cardiopulmonary disease. 2. Scattered bilateral calcified pleural plaques consistent with prior asbestos exposure. Reviewed, dictated and finalized at location A. ECTOR BICYCLE
--- NOTE | 2023-10-30 12:39 | ECG_ITS ---
Measurements Intervals [place] Rate: 95 P: MN: 0 QRS: 24 QRSD: 102 T: 214 QT: 343 QTc: 433 Interpretive Statements ATRIAL FIBRILLATION ST DEVIATION AND MODERATE T-WAVE ABNORMALITY, CONSIDER LATERAL ISCHEMIA [-0.1+ mV T WAVE IN I/aVL/V5/V6] ABDOMEN ECG COMPARED TO ECG 06/30/2023 04:30:39 NO SIGNIFICANT CHANGES Electronically Signed On 10-30-2023 13:20:35 FIGURE SKATER by Kojo Ramirez M.D.
[2023-10-30 13:13] LABS: Basophils Absolute Auto 0.1 K/mm3 (0.0-0.1); Basophils Percent Auto 1.1 % (0.2-1.2); Eosinophils Absolute Auto 0.3 K/mm3 (0-0.3); Eosinophils Percent Auto 4.3 % (0-4.4); Hematocrit 49.7 % (42.0-52.0); Hemoglobin 16.1 g/dL (14.0-18.0); Immature Granulocyte Absolute 0.03 K/mm3 (0.00-0.031); Immature Granulocyte Percent A 0.5 % (0-0.5); Lymphocytes Absolute Auto 1.68 K/mm3 (0.9-3.2); Mean Corpuscular HGB Conc 32.4 g/dl (32-36); Mean Corpuscular Hemoglobin 28.2 pg (26-34); Mean Corpuscular Volume 87.2 fl (80-100); Mean Platelet Volume 10.9 fl (7.4-10.4); Monocytes Absolute Auto 0.3 K/mm3 (0.1-0.6); Monocytes Percent Auto 5.3 % (2.6-8.5); Neutrophils Absolute Auto 4.1 K/mm3 (1.3-6.7); Neutrophils Percent Auto 62.8 % (45.5-73.1); Platelet Count Result 238 k/mm3 (150-375); Red Cell Distribution Width 14.6 % (11.5-14.5); White Blood Count 6.5 K/mm3 (4.5-10.0)
[2023-10-30 13:26] LABS: Alanine Aminotransferase 26 U/L (6-50); Albumin Level 4.1 g/dL (3.5-5.1); Alkaline Phosphatase 50 U/L (38-126); Anion Gap 9 mmol/L (8-16); Aspartate Amino Transferase 32 U/L (17-59); Bilirubin,Total 1.6 mg/dL (0.2-1.3); Blood Urea Nitrogen 16 mg/dL (9-20); Carbon Dioxide 25 mmol/L (22-30); Chloride 106 mmol/L (98-107); Estimated CRCL calculation 34 ml/min; Estimated Glomerular Filt Rate 57; Glucose 131 mg/dL (65-110); Potassium 4.1 mmol/L (3.4-5.0); Sodium 140 mmol/L (137-145)
--- NOTE | 2023-10-30 17:34 | ED.GENADULT ---
HPI - General Adult General Chief complaint: Shortness of Breath/Dyspnea Stated complaint: SOB Time Seen by Provider: 10/30/23 16:51 History of Present Illness HPI narrative: Patient is an 88 year old male who presents to the emergency department this afternoon complaining of shortness of breath. Patient admits to the shortness of breath is mainly when he is exerting himself, when he is sitting calmly his SOB is very mild. Patient denies any current tobacco use, states that he quit tobacco back in the 70s. He is currently denying any chest pain. Patient denies any upper respiratory infection symptoms including cough, runny nose, fevers or chills. Denies any sick contacts at home or exposure to any known COVID/influenza. Patient denies any additional symptoms at this time. The remainder the history of present illness and review of systems negative unless stated otherwise in the HPI. There are no other modifying, alleviating, or precipitating factors at this time Related Data Home Medications Medication Instructions Recorded Confirmed latanoprost 0.005 % eye drops 1 drp EACH EYE HS 06/30/23 07/04/23 empagliflozin 10 mg tablet 10 mg PO DAILY 09/10/23 09/10/23 (Jardiance) sacubitril 24 mg-valsartan 26 mg 1 tablet PO BID 09/10/23 09/10/23 tablet (Entresto) Allergies Allergy/AdvReac Type Severity Reaction Status Date / Time No Known Allergies Allergy Unknown Verified 10/30/23 17:03 Review of Systems Review of Systems: All systems are reviewed and are negative unless stated otherwise in the HPI. [facility] Past Medical History Medical History History of prostate cancer (2007) Hx of malignant neoplasm of colon Surgical History Surgical History History of cholecystectomy (2007) Family History Family History Mother Heart disease Social History Social History Smoking packs per day: 1 Smoking cigarettes per day: 20.0 Years smoked: 30 Smoking pack-years: 30.00 Smoking status: Former smoker Second hand tobacco smoke exposure: No Alcohol intake: current Drinks per week: 7 Alcohol use details: 1 glass wine daily Substance use: never Substance use type: does not use Lack of Transportation: No Lack of Food: Never True Current Housing: I Have Housing Concerned About Future Housing: No Difficulty Paying Gas/Electric Bills: No Difficulty Paying for Meds: No Currently Unemployed: No Education: High School Diploma/GED Difficulty w/ Childcare or Family Care: No Living arrangements: with family Occupation/Education: retired Gender identity (if verbalized by the patient): Male Sexual Orientation (if Verbalized by the Patient): Straight or Heterosexual Spiritual care concerns: No Agree to blood products: Yes Exam Narrative: General: Alert, awake, afebrile, in no acute distress. HEENT: PERRL, no rhinorrhea, no post nasal drip, oropharynx clear. Neck: Trachea midline, no JVD, no lymphadenopathy. Cardiovascular: Regular rate and rhythm, no murmurs, rubs or gallops, no peripheral edema. Respiratory: Clear to auscultation bilaterally, no tachypnea, no wheezing, no rhonchi, no rubs, no respiratory distress. Abdomen: Soft, nontender, nondistended, no rebound, no guarding, no peritoneal signs. Musculoskeletal: No joint swelling or deformity, normal muscle tone. Skin: No rashes or petechia, no signs of infection. Psychiatric: Alert and oriented, normal behavior and judgment for situation. Neurological: Alert and oriented to person, place, and time. Follows all commands. No focal deficits, speech is clear and fluent. Course Vital Signs Vital signs: Vital Signs Temperature 97.4 F L 10/30/23 12:45 Pulse Rate 99 10/30/23 12:45 Respiratory Rate
[2023-10-30 18:02] LABS: Influenza A QL RT-PCR Negative (Negative); Influenza B QL RT-PCR Negative (Negative); SARS-CoV-2 RNA PCR Negative (Negative)
== END 2023-10-30 18:53 | disposition home or self-care (01) ==
PROVIDERS: Emergency Medicine; Emergency Provider Emergency Medicine; PCP Family Medicine Adolescent Medicine
DX: J92.0 Pleural plaque with presence of asbestos (principal); R06.02 Shortness of breath; Z20.822 Contact with and (suspected) exposure to COVID-19; Z85.46 Personal history of malignant neoplasm of prostate; Z85.038 Personal history of other malignant neoplasm of large intestine; Z87.891 Personal history of nicotine dependence; Z90.49 Acquired absence of other specified parts of digestive tract; Z79.82 Long term (current) use of aspirin; Z79.84 Long term (current) use of oral hypoglycemic drugs; Z79.01 Long term (current) use of anticoagulants
CPT/HCPCS: 36415; 71046; 71275; 80053; 85025; 87636; 93005; 99284; Q9967

== ENCOUNTER 2023-11-11 12:30 | Outpatient (RCR) | payer MEDICARE, OTHER, SELFPAY ==
--- NOTE | 2023-11-07 16:59 | STOPEVAL1 ---
Assessment and note entered by Jeana Krishnamurthy, AUTOMATION TECHNICIAN Reported Pain Level Pain Score 0: Self Report Assessment ST Clinical Summary BEDSIDE SWALLOW EVALUATION Patient was seen for a Bedside Swallow Evaluation at the request of his physician. He was placed at [facility] in June 2023 for congestive heart failure and pneumonia. His swallowing was assessed using a Modified Barium Swallow study at that time and it was noted that he exhibited instances of penetration including: reduced laryngeal elevation contributing to penetration of thin/mildly thick liquids and on one instance of semi-solid consistency and reduced base of tongue retraction in order to contribute to improved epiglottal inversion. Although the patient reports improvements he still complains of coughing on thin liquids. Today the patient consumed water for therapist as he reported the most issues with thin liquids. He was noted to cough 2/5 presentations while taking multiple sips per presentation. Therapist instructed the patient in the use of head flexion to assist with prevention of aspiration and he voiced and demonstrated good understanding. Additionally the EAT-10 or Eating Assessment Tool- 10 (10 questions) was offered with each area of concern ranging from 0 (no concern) to 4 ( significant concern, each meal). Patient scored 18 /40 points indicated a moderate concern for aspiration. Patient will be seen twice weekly for 2-4 weeks for instruction of home exercise program to be completed at least 5 days a week between therapy sessions and home. Additionally he will be instructed in the use of safe swallowing guidelines. Results and recommendations were made and patient voiced good understanding. Thank you for this referral. Plan of Care Interventions Treatment of Swallowing D ST Services Indicated Yes Treatment Frequency and 2x/week for 8 visits. Duration These treatments will address the objective and functional deficits as defined above. The patient will be advanced safely and appropriately in order for the patient to progress towards his/her pr
--- NOTE | 2023-11-11 14:25 | STOPDC ---
Assessment and note entered by GT Porter Evaluation Information Assessment Status Discharge Reported Pain Level Pain Score 0: Self Report Assessment ST Clinical Summary TREATMENT SUMMARY AND DISCHARGE SUMMARY The patient was seen for an evaluation of his swallowing and two treatment sessions focusing on improving the strength and efficiency of the swallow. Patient was instructed in a variety of laryngeal elevation, laryngeal adduction, and base of tongue retraction exercises along with hard, effortful swallow against resistance. He appeared to be completing the latter at time of the initial evaluation and last treatment session but today admitted that he did not know that the hard swallow exercise involved swallowing, and not just putting pressure on the chin. He stated today he now understands what is expected. He admitted, however, other than pressing the hand/fist into the chin, he has not been completing the other exercises, and therefore he has not been completing any exercises since last week. Today the patient voiced and demonstrated the hard, effortful swallow with chin tuck against resistance x10. Correct swallows could be heard. He also complete laryngeal elevation and laryngeal adduction exercises x10 with fair-good strength and loudness. It is difficult for patient to sustain the each sound produced without dropping pitch or loudness, but improved by end of session. Patient had not scheduled any additional sessions; therapist discussed continuing and scheduling or discharging today if he was not interested in continuing and patient opted for discharge. He indicated he has plenty of time to practice (but did not practice much except the hard swallow, according to the patient) and decided he wants to continue independently. Therapist explained how continuing therapy is beneficial with someone to model and encourage the exercises however patient indicated that he would continue independently. Therapist will contact patient in two weeks to assess progress. Patient is being discharged this date with goals partially achieved
== END 2023-11-11 15:59 | disposition home or self-care (01) ==
LOC: ANHST 12:30
PROVIDERS: PCP Family Medicine Adolescent Medicine; Visit Provider Family Medicine Adolescent Medicine
DX: R13.10 Dysphagia, unspecified (principal)
CPT/HCPCS: 92526; 92610

== ENCOUNTER 2023-12-09 10:07 | Outpatient (CLI) | payer MEDICARE, OTHER, SELFPAY ==
--- NOTE | 2023-12-16 11:34 | WPDSIXMINUTE ---
Six Minute Walk Procedure Procedure Performed Pulmonary Stress Test (6 min walk) Six Minute Walk Six Minute Walk: DATE OF SERVICE: 12/09/2023 REQUESTING: Tai Muse MD REASON FOR TESTING: dyspnea SIX MINUTE WALK This test was conducted per ATS guidelines. The test was conducted while the patient was breathing room air. The initial saturation was 98%, and initial heart rate was 54 beats per minute. The patient walked without stopping, completing 800 ft/243.8 m. The saturation at the end of testing was 96%, and the heart rate was 85 beats per minute. IMPRESSION: This is a normal study. The patient did not require supplemental oxygen with exertion. Jeana Zhu MD
--- NOTE | 2023-12-16 11:39 | WPDPFTINT ---
PFT Procedure Performed PFT Procedure Performed Spirometry with Pre/Post Bronchodilator Plethysmography (Lung Vol) Diffusing Cap (DLCO) Flow Vol Loop PFT Interpretation DOS: 12/09/2023 REQUESTING: Tai Muse MD REASON FOR TESTING: Dyspnea; multiple occupational exposures, worked at [employer] 40 years PULMONARY FUNCTION TESTS As of December 13, 2022, the Global Lung Initiative reference equations are used in interpretation of spirometry, lung volumes and diffusing capacity. Race and ethnicity are not included as variables in the interpretation strategy. Results are reliable and reproducible. Repeatability of spirometry FEV1 maneuver pre and post bronchodilator is Grade A. Spirometry: The pre-bronchodilator FEV1 is 1.83 L, 80%. The pre-bronchodilator FVC is 2.87 L, 94%. The FEV1/FVC ratio is 64%. After bronchodilator, the FEV1 is 1.97 L, 87%, 8% increase. The post bronchodilator FVC is 2.65 L, 86%, 8% decrease. The post bronchodilator FEV1/FVC ratio is 74%. Lung volumes: The total lung capacity is 4.20 L, 69%, decreased consistent with a restrictive impairment. The residual volume is 1.32 L, 52%, restrictive impairment. The RV/TLC is 32%, decreased. Airway resistance 248% Diffusion: DLCO is 15.7, 78%, normal. The DLCO/VA is 4.36, 118%, normal. Flow volume loop: The flow volume loop shows overall mild restriction and coving of the expiratory limb suggestive of airflow obstruction. IMPRESSION: This study shows normal spirometry without response to bronchodilator, mild restrictive impairment and normal diffusion. The lack of response to bronchodilator does not preclude use if clinically indicated. There are no prior studies for comparison. Jeana Zhu MD
--- NOTE | 2023-12-30 11:04 | WPDSIXMINUTE ---
Six Minute Walk Procedure Procedure Performed Pulmonary Stress Test (6 min walk) Six Minute Walk Six Minute Walk: DATE OF SERVICE: 12/09/2023 REQUESTING: Tai Muse MD REASON FOR TESTING: shortness of breath SIX MINUTE WALK This test was conducted per ATS guidelines. The initial saturation was 98%, and initial heart rate was 54 beats per minute. The patient walked without stopping, completing 800 ft/ 243.8 m while breathing room air. The saturation at the end of testing was 96%, and the heart rate was 85 beats per min. IMPRESSION: This is a normal study. The patient did not require supplemental oxygen with exertion. Jeana Zhu MD
== END 2023-12-09 10:08 | disposition home or self-care (01) ==
LOC: ANHPFT 10:08
PROVIDERS: PCP Family Medicine Adolescent Medicine; Visit Provider Internal Medicine Pulmonary Disease
DX: R06.02 Shortness of breath (principal)
CPT/HCPCS: 94060; 94618; 94726; 94729

== ENCOUNTER 2024-03-25 11:20 | Outpatient (CLI) | payer MEDICARE, OTHER, SELFPAY ==
[2024-03-25 12:03] LABS: Basophils Percent Auto 0.6 % (0.2-1.2); Eosinophils Absolute Auto 0.3 K/mm3 (0-0.3); Eosinophils Percent Auto 3.8 % (0-4.4); Hematocrit 48.8 % (42.0-52.0); Hemoglobin 15.9 g/dL (14.0-18.0); Immature Granulocyte Absolute 0.02 K/mm3 (0.00-0.031); Immature Granulocyte Percent A 0.3 % (0-0.5); Lymphocytes Absolute Auto 1.83 K/mm3 (0.9-3.2); Lymphocytes Percent Auto 27.5 % (18.3-44.2); Mean Corpuscular HGB Conc 32.6 g/dl (32-36); Mean Corpuscular Hemoglobin 29.4 pg (26-34); Mean Corpuscular Volume 90.4 fl (80-100); Mean Platelet Volume 10.8 fl (7.4-10.4); Monocytes Absolute Auto 0.6 K/mm3 (0.1-0.6); Monocytes Percent Auto 8.3 % (2.6-8.5); Neutrophils Percent Auto 59.5 % (45.5-73.1); Platelet Count Result 224 k/mm3 (150-375); Red Cell Distribution Width 14.1 % (11.5-14.5); White Blood Count 6.7 K/mm3 (4.5-10.0)
[2024-03-25 12:45] LABS: Alanine Aminotransferase 20 U/L (6-50); Albumin Level 4.3 g/dL (3.5-5.1); Alkaline Phosphatase 50 U/L (38-126); Anion Gap 8 mmol/L (4-12); Aspartate Amino Transferase 26 U/L (17-59); Bilirubin,Total 1.8 mg/dL (0.2-1.3); Blood Urea Nitrogen 17 mg/dL (9-20); Carbon Dioxide 29 mmol/L (22-30); Chloride 103 mmol/L (98-107); Estimated Glomerular Filt Rate 57; Glucose 92 mg/dL (65-110); Potassium 4.8 mmol/L (3.4-5.0); Sodium 140 mmol/L (137-145)
[2024-03-25 12:53] LABS: NT Pro B Type Natriuretic Pept 1720 pg/mL (19.9-100)
== END 2024-03-25 11:21 | disposition home or self-care (01) ==
PROVIDERS: PCP Family Medicine Adolescent Medicine; Visit Provider Family Medicine Adolescent Medicine
DX: I50.22 Chronic systolic (congestive) heart failure (principal)
CPT/HCPCS: 36415; 80053; 83880; 85025

== ENCOUNTER 2025-01-10 11:38 | Emergency (ER) | payer MEDICARE, OTHER, SELFPAY ==
--- OUTSIDE RECORDS SUMMARY | 2025-01-10 11:39 | XMS_ITS | Continuity of Care Document ---
Author Organization [facility] Address [address] [place] [address] Phone Care Team Providers Care Radiologic Electronic Specialist Name Role Phone Estefanía Davis Unavailable Unavailable [...] Copied on Encounter Office/outpat ient Visit, Est [facility], [address], [place], [place], [id number], [place] tel:[phone] [facility] No Information Oct-0 5-201 0 Susan José. [address] , [address], [place], [place], [facility], . tel:[phone] Referring Provider: Estefanía Smith, [address], [place], [place], [facility]. tel:[phone] Office/outpat ient Visit, [facility], [address] [place] [address] [address], [place], [place], [id number], tel:[phone] [facility] No Information May-0 4-201 0 Susan José. [address] , [address], [place], [place], [facility], . tel:[phone] Referring Provider: Estefanía Smith, [address], [place], [place], [facility]. tel:[phone] [facility], [address] [place] [address] [address], [place], [place], [id number], tel:[phone] [facility] No Information Duane-0 5-201 0 Susan José. [facility] , [address], [place], [place], [facility], [place]. tel:[phone] Referring Provider: Estefanía Smith, [facility] [address], [place], [place], [facility]. tel:[phone] [facility] Eye [facility], [address] [place] [address] [address], [place], [place], [id number], tel:[phone] [facility] No Information Duane-0 4-201 0 Susan José. [address] [facility] , [address], [place], [place], [facility], . tel:[phone] Referring Provider: Estefanía Smith, [address], [place], [place], [facility]. tel:[phone] Office/outpat ient Visit, [facility], [id number] [place] [address] [address], [place], [place], [id number], [place] tel:[phone] [facility] [place] No Information Apr-3 0-200 9 Susan Martin [address] , [address], [place], [place], [facility], . tel:[phone] Office/outpat ient Visit, [facility] Eye [facility], [address] [place] [address] [address], [place], [place], [id number], [place] tel:[phone] [facility] No Information Dec-0 5-200 8 Susan Martin [address] , [address], [place], [place], [facility], . tel:[phone] [facility], [address] [place] [address] [address], [place], [place], [id number], [place] tel:[phone] [facility] No Information Carlos Manuel-3 0-200 8 Ssuan Martin [address] [facility] , [address], [place], [place], [facility], [place]. tel:[phone] Referring Provider: Estefanía Smith, [address] [facility] [facility] [address], [place], [place], [facility]. tel:[phone] [facility], [address] [place] [address] [address], [place], [place], [id number], [place] tel:[phone] [facility] No Information Carlos Manuel-2 8-200 8 Susan Martin [address] , [address], [place], [place], [facility], [place]. tel:[phone] Referring Provider: Estefanía Smith, [address], [place], [facility]. tel:[phone] Office/outpat ient Visit, [facility] Eye [facility], [address] [place] [address] [address], [place], [place], [id number], [place] tel:[phone] [facility] No Information Mar-0 7-200 8 Susan José. [address] , [address], [place], [place], [facility], . tel:[phone] Referring Provider: Estefanía Smith, [address], [place], [facility]. tel:[phone] Office/outpat ient Visit, [facility], [address] [place] [address] [address], [place], [place], [id number], [place] tel:[phone] [facility] No Information Jul-0 2-200 7 Susan José. [address] , [address], [place], [facility], [place]. tel:[phone] [facility], [address] [place] [address] [address], [place], [place], [id number], [place] tel:[phone] [facility] No Information Feb-2 6-200 7 Susan José. [address] [facility] [address] [facility] , [address], [place], [facility], [place]. tel:[phone] Referring Provider: Estefanía Smith, [address], [place], [facility]. tel:[phone] [facility], [address] [place] [address] [address], [place], [place], [id number], [place] tel:[phone] [facility] No Information Feb-2 5-200 7 Susan José. [address] , [address], [place], [place], [facility], [place]. tel:[phone] Referring Provider: Estefanía Smith, [address], [place], [facility]. tel:[phone] Office/outpat ient Visit, [facility], [address] [place] [address] [address], [place], [place], [id number], [place] tel:[phone] [facility] No Information Oct-2 3-200 7 Susan José. [address] , [address], [place], [address], [place]. tel:[phone] Family History Family Member Type Diagnosis Age At Onset No Information Payers Payer name Insurance type Covered constitution party ID Sonya martinez(s) [place] [id number] [facility] Commercial CI [id number] Social History Type Description Quantity Date Captured [...]
--- OUTSIDE RECORDS SUMMARY | 2025-01-10 11:39 | XMS_ITS | Encounter Summary ---
Author Organization [facility] Address [address] [place] [address] Care Team Providers Care Senior Test Analyst Name Role Phone Kiran King MD Primary Care Provider + Encounter Details Date Type Department Care Team (Late st Contact Info) Description 08/03/2020 Lab Requisition [facility] DermPath Lab [address] [place] [id number] Demarcus Smith MD [address] [place] [address] Social History Tobacco Use Types Packs/Day Years Used Date Smoking Tobacco: Former Alcohol Use Standard Drinks/Week Comments Yes 0 (1 standard drink = 0.6 oz pur e alcohol) Sex and Gender Information Value Date Recorded Sex Assigned at Not on file Legal Sex Male 5:57 PM CHIEF NURSING EXECUTIVE Gender Identity Not on file Sexual Orientation Not on file documented as of this encounter Plan of Treatment Not on file documented as of this encounter Procedures Procedure Name Priority Date/Time Associated Diagnosis Comments DERMATOPATHOLOGY Routine 08/02/2020 12:0 0 AM CHIEF NURSING EXECUTIVE documented in this encounter Results * DERMATOPATHOLOGY (08/02/2020 12:00 AM CHIEF NURSING EXECUTIVE) Case Report Dermatopathology Report Case: [id number] Authorizing Provider: Demarcus Smith MD Collected: 08/02/2020 12:00 AM Ordering Location: [facility] Derm[facility] Lab Received: 08/03/2020 01:05 PM Pathologist: Roseanne Gonzalez MD Specimens: A) - Skin, left nasal tip B) - Skin, right lateral alar rim C) - Skin, left lateral ala D) - Skin, floor of right nostril 0 4:15 PM [facility] DERMATOPATHOLOGY LABORATORY Final Diagnosis Specimen A. SKIN, left nasal tip: BASAL CELL CARCINOMA (C44.311) (see microscopic description and comment) Specimen B. SKIN, right lateral alar rim: BASAL CELL CARCINOMA (C44.212) (see microscopic description and comment) Specimen C. SKIN, left lateral ala: INTRADERMAL MELANOCYTIC NEVUS (D22.39) Specimen D. SKIN, floor of right nostril: INTRADERMAL MELANOCYTIC NEVUS (D22.39) 0 4:15 PM [facility] DERMATOPATHOLOGY LABORATORY Clinical History A-D: R/O BCC, SCC. 0 4:15 PM [facility] DERMATOPATHOLOGY LABORATORY Gross Description Specimen A: Received is one formalin filled container labeled with the patient's name and designated left nasal tip. The specimen consists of a shave biopsy measuring 6e1v2la. Jar 0. Specimen B: Received is one formalin filled container labeled with the patient's name and designated right lateral alar rim. The specimen consists of a shave biopsy (2 pieces) measuring 3g6k8uq & 9p1g1yr. Jar 0. Specimen C: Received is one formalin filled container labeled with the patient's name and designated left lateral ala. The specimen consists of a shave biopsy measuring 1w1d3qj. Jar 0. Specimen D: Received is one formalin filled container labeled with the patient's name and designated floor of right nostril. The specimen consists of a shave biopsy measuring 3o4m8vc. Jar 0. 0 4:15 PM [facility] DERMATOPATHOLOGY LABORATORY Microscopic Description Specimen A. SKIN, left nasal tip: The specimen consists of aggregates of basaloid cells, located within the superficial dermis, with high nuclear to cytoplasmic ratio and peripheral palisading. COMMENT: The small size of the specimen limits subtyping of the lesion. Specimen B. SKIN, right lateral alar rim: The specimen consists of aggregates of basaloid cells, located within the superficial dermis, with high nuclear to cytoplasmic ratio and peripheral palisading. COMMENT: The small size of the specimen limits subtyping of the lesion. Specimen C. SKIN, left lateral ala: There are nests of cytologically bland melanocytes within the dermis that mature with depth. Specimen D. SKIN, floor of right nostril: There are nests of cytologically bland melanocytes within the dermis that mature with depth. 0 4:15 PM CHIEF NURSING EXECUTIVE DERMATOPATHOLOGY LABORATORY Disclaimer An external and internal positive and negative controls are appropriate for the histochemical, immunohistochemical and immunofluorescence stain(s) in this case (if any), except where stated explicitly. The performance characteristics of the stain(s) cited in this report were developed and its performance characteristic determined by the Dermatopathology Laboratory at [facility], directed by Dr. Christine Rodriguez. These tests need not be, and therefore are not, approved by the [place] Food and Drug Administration. The tests are used for clinical purposes. Billing Codes Specimen Charges Stain Charges 63940 81918 21851 95251 1 1 1 1 0 4:15 PM CHIEF NURSING EXECUTIVE DERMATOPATHOLOGY LABORATORY Embedded Images 0 4:15 PM CHIEF NURSING EXECUTIVE DERMATOPATHOLOGY LABORATORY Pathology/Cytology TISSUE SPECIMEN FROM SKIN / Unknown 08/02/2020 08/03/2020 1:05 PM CHIEF NURSING EXECUTIVE Miscellaneous samples (specimen) TISSUE SPECIMEN FROM SKIN / Unknown 08/02/2020 08/03/2020 1:05 PM CHIEF NURSING EXECUTIVE Miscellaneous samples (specimen) TISSUE SPECIMEN FROM SKIN / Unknown 08/02/2020 08/03/2020 1:05 PM CHIEF NURSING EXECUTIVE Miscellaneous samples (specimen) TISSUE SPECIMEN FROM SKIN / Unknown 08/02/2020 08/03/2020 1:05 PM CHIEF NURSING EXECUTIVE Demarcus Smith MD LAB - PATHOLOGY/CYTOLOGY ORD ERABLES Final Result DERMATOPATHOLOGY LABORATORY [facility] - Department of Dermatology [facility] Medicine [address] [place] [address], 3rd [place] [address], [facility] [phone] documented in this encounter Visit Diagnoses Not on filedocumented in this encounter Care Teams Senior Test Analyst Relationship Specialty Start Date End Date Kiran King MD [address] [address] PCP - General 07/03/13 documented as of this encounter
--- OUTSIDE RECORDS SUMMARY | 2025-01-10 11:39 | XMS_ITS | Clinical Summary ---
Author Organization [facility] Address [address] [place] [address] Care Team Providers Care Machine Setter Automatic Name Role Phone Kiran King MD Primary Care Provider + Source Comments [facility],non-[facility] Affiliates and Associated Physician Practices is amultiple site organization consisting of ambulatory clinics and hospital sitesin [place], [place], [place] and [place]. This disclosure is being madepursuant to the Care Everywhere program and may not contain all information available regarding this patient. Last updated 18.[facility] [employer] Allergies No known active allergies Medications * Be aware that medications may not be up to date on this document. Alwaysverify current medications with the patient. latanoprost (XALATAN) 0.005 % ophthalmic solution INT 1 GTT IN OU HS 05/10/2020 Active Active Problems Problem Noted Date Diagnosed Date Basal cell carcinoma of skin of nose 07/03/2013 Family History Medical History Relation Name Comments Allergy (Severe) Neg Hx CVA Neg Hx Cancer Neg Hx Cancer - Breast Neg Hx Cancer - Skin, Melanoma Neg Hx Cancer - Skin, Non Melanoma Neg Hx Eczema Neg Hx Hemophilia Neg Hx Psoriasis Neg Hx Rashes/Skin Problems Neg Hx Social History Tobacco Use Types Packs/Day Years Used Date Smoking Tobacco: Former Smokeless Tobacco: Never Alcohol Use Standard Drinks/Week Comments Yes 0 (1 standard drink = 0.6 oz pur e alcohol) Sex and Gender Information Value Date Recorded Sex Assigned at Not on file Legal Sex Male 5:57 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 PUMPING 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 Gender Identity Not on file Sexual Orientation Not on file Last Filed Vital Signs Vital Sign Reading Time Taken Comments Blood Pressure 117/71 09/20/2020 7:51 AM GAS PUMPING STATION SUPERVISOR Pulse 67 09/20/2020 7:51 AM GAS PUMPING STATION SUPERVISOR Temperature - - Respiratory Rate - - Oxygen Saturation 97% 03/06/2016 9:19 AM CDT Inhaled Oxygen Concentration - - Weight 69.4 kg (153 lb) 09/20/2020 7:51 AM GAS PUMPING STATION SUPERVISOR Height 166.4 cm (5' 5.5 ) 09/20/2020 7:51 AM GAS PUMPING STATION SUPERVISOR Body Mass Index 25.07 09/20/2020 7:51 AM GAS PUMPING STATION SUPERVISOR Plan of Treatment Health Maintenance Due Date Last Done Comments DTAP/TDAP/TD VACCINES (1 - Tdap) 1955 PNEUMOCOCCAL VACCINE 50+ (1 of 1 - PCV) 1986 ZOSTER VACCINE (1 of 2) 1986 Respiratory Syncytial Virus (RSV) Vaccine Pt: or over 60 yrs (1 - 1-dose 75+ series) 2011 COVID-19 VACCINE (2023-2 5 season) 2024 DEPRESSION SCREENING 09/16/2024 INFLUENZA VACCINE (Season Ended) 2025 HEPATITIS B VACCINE Aged Out No longe r eligible based on patient's age to complete this topic HIB VACCINE Aged Out No longer eligi ble based on patient's age to complete this topic HPV VACCINE Aged Out No longer eligi ble based on patient's age to complete this topic MENINGOCOCCAL (Group B) VACC INE SHARED DECISION-MAKING Aged Out No longer eligibl e based on patient's age to complete this topic MENINGOCOCCAL GROUPS A/C/Y/W VACCINE Aged Out No longer eligible b ased on patient's age to complete this topic Insurance MEDICARE [facility] Care Teams Machine Setter Automatic Relationship Specialty Start Date End Date Kiran King MD [address] [address] PCP - General 07/03/13
[2025-01-10 11:57] VITALS: BP 114/78; PULSE 81; RESP 18; TEMP 36.2; O2SAT 99
--- OUTSIDE RECORDS SUMMARY | 2025-01-10 12:32 | XMS_ITS | Encounter Summary ---
Author Organization [facility] Address [address] [place] [address] Care Team Providers Care Steel Erector Apprentice Name Role Phone Kiran King MD Primary Care Provider + Encounter Details Date Type Department Care Team (Late st Contact Info) Description 08/03/2020 Lab Requisition [facility] DermPath Lab [address] [place] [id number] Demarcus Smith MD [address] [place] [address] Social History Tobacco Use Types Packs/Day Years Used Date Smoking Tobacco: Former Alcohol Use Standard Drinks/Week Comments Yes 0 (1 standard drink = 0.6 oz pur e alcohol) Sex and Gender Information Value Date Recorded Sex Assigned at Not on file Legal Sex Male 5:57 PM HIGH SCHOOL PRINCIPAL Gender Identity Not on file Sexual Orientation Not on file documented as of this encounter Plan of Treatment Not on file documented as of this encounter Procedures Procedure Name Priority Date/Time Associated Diagnosis Comments DERMATOPATHOLOGY Routine 08/02/2020 12:0 0 AM HIGH SCHOOL PRINCIPAL documented in this encounter Results * DERMATOPATHOLOGY (08/02/2020 12:00 AM HIGH SCHOOL PRINCIPAL) Case Report Dermatopathology Report Case: [id number] Authorizing Provider: Demarcus Smith MD Collected: 08/02/2020 12:00 AM Ordering Location: [facility] Derm[facility] Lab Received: 08/03/2020 01:05 PM Pathologist: Roseanne Gonzalez MD Specimens: A) - Skin, left nasal tip B) - Skin, right lateral alar rim C) - Skin, left lateral ala D) - Skin, floor of right nostril 0 4:15 PM [facility] DERMATOPATHOLOGY LABORATORY Final Diagnosis Specimen A. SKIN, left nasal tip: BASAL CELL CARCINOMA (C44.311) (see microscopic description and comment) Specimen B. SKIN, right lateral alar rim: BASAL CELL CARCINOMA (C44.212) (see microscopic description and comment) Specimen C. SKIN, left lateral ala: INTRADERMAL MELANOCYTIC NEVUS (D22.39) Specimen D. SKIN, floor of right nostril: INTRADERMAL MELANOCYTIC NEVUS (D22.39) 0 4:15 PM [facility] DERMATOPATHOLOGY LABORATORY Clinical History A-D: R/O BCC, SCC. 0 4:15 PM [facility] DERMATOPATHOLOGY LABORATORY Gross Description Specimen A: Received is one formalin filled container labeled with the patient's name and designated left nasal tip. The specimen consists of a shave biopsy measuring 4w2a8oi. Jar 0. Specimen B: Received is one formalin filled container labeled with the patient's name and designated right lateral alar rim. The specimen consists of a shave biopsy (2 pieces) measuring 3g9f6rd & 6w4o3zl. Jar 0. Specimen C: Received is one formalin filled container labeled with the patient's name and designated left lateral ala. The specimen consists of a shave biopsy measuring 2i0w4ro. Jar 0. Specimen D: Received is one formalin filled container labeled with the patient's name and designated floor of right nostril. The specimen consists of a shave biopsy measuring 9j8z0jo. Jar 0. 0 4:15 PM [facility] DERMATOPATHOLOGY LABORATORY Microscopic Description Specimen A. SKIN, [...] that mature with depth. 0 4:15 PM HIGH SCHOOL PRINCIPAL DERMATOPATHOLOGY LABORATORY Disclaimer An external and internal positive and negative controls are appropriate for the histochemical, immunohistochemical and immunofluorescence stain(s) in this case (if any), except where stated explicitly. The performance characteristics of the stain(s) cited in this report were developed and its performance characteristic determined by the Dermatopathology Laboratory at [facility], directed by Dr. Christine Rodriguez. These tests need not be, and therefore are not, approved by the [place] Food and Drug Administration. The tests are used for clinical purposes. Billing Codes Specimen Charges Stain Charges 25596 46487 10200 95487 1 1 1 1 0 4:15 PM HIGH SCHOOL PRINCIPAL DERMATOPATHOLOGY LABORATORY Embedded Images 0 4:15 PM HIGH SCHOOL PRINCIPAL DERMATOPATHOLOGY LABORATORY Pathology/Cytology TISSUE SPECIMEN FROM SKIN / Unknown 08/02/2020 08/03/2020 1:05 PM HIGH SCHOOL PRINCIPAL Miscellaneous samples (specimen) TISSUE SPECIMEN FROM SKIN / Unknown 08/02/2020 08/03/2020 1:05 PM HIGH SCHOOL PRINCIPAL Miscellaneous samples (specimen) TISSUE SPECIMEN FROM SKIN / Unknown 08/02/2020 08/03/2020 1:05 PM HIGH SCHOOL PRINCIPAL Miscellaneous samples (specimen) TISSUE SPECIMEN FROM SKIN / Unknown 08/02/2020 08/03/2020 1:05 PM HIGH SCHOOL PRINCIPAL Demarcus Smith MD LAB - PATHOLOGY/CYTOLOGY ORD ERABLES Final Result DERMATOPATHOLOGY LABORATORY [facility] - Department of Dermatology [facility] Medicine [address] [place] [address], 3rd [place] [address], [facility] [phone] documented in this encounter Visit Diagnoses Not on filedocumented in this encounter Care Teams Steel Erector Apprentice Relationship Specialty Start Date End Date Kiran King MD [address] [address] PCP - General 07/03/13 documented as of this encounter
--- OUTSIDE RECORDS SUMMARY | 2025-01-10 12:32 | XMS_ITS | Continuity of Care Document ---
Author Organization [facility] Address [address] [place] [address] Phone Care Team Providers Care Sanforizer Name Role Phone Estefanía Davis Unavailable Unavailable [...] Copied on Encounter Office/outpat ient Visit, [facility], [address], [place], [place], [id number], [place] tel:[phone] [facility] No Information Oct-0 5-201 0 Susan José. [address] , [address], [place], [place], [facility], . tel:[phone] Referring Provider: Estefanía Smith, [address], [place], [place], [facility]. tel:[phone] Office/outpat ient Visit, [facility], [address] [place] [address] [address], [place], [place], [id number], tel:[phone] [facility] No Information May-0 4-201 0 Susan José. [address] [facility] , [address], [place], [place], [facility], . tel:[phone] Referring Provider: Estefanía Smith, [address] [facility] [address], [place], [place], [facility]. tel:[phone] [facility], [address] [place] [address] [address], [place], [place], [id number], tel:[phone] [facility] No Information Duane-0 5-201 0 Susan José. [facility], [facility] , [address], [place], [place], [facility], [place]. tel:[phone] Referring Provider: Estefanía Smith, [facility], [facility] [address], [place], [place], [facility]. tel:[phone] [facility], [address] [place] [address] [address], [place], [place], [id number], tel:[phone] [facility] No Information Duane-0 4-201 0 Susan José. [address] [facility] , [address], [place], [place], [facility], . tel:[phone] Referring Provider: Estefanía Smith, [address], [place], [place], [facility]. tel:[phone] Office/outpat ient Visit, [facility], [address] [place] [address] [address], [place], [place], [id number], [place] tel:[phone] [facility] [place] No Information Apr-3 0-200 9 Susan Martin [address] [facility] [address] [facility] , [address], [place], [place], [facility], . tel:[phone] Office/outpat ient Visit, [facility], [address] [place] [address] [address], [place], [place], [id number], [place] tel:[phone] [facility] No Information Dec-0 5-200 8 Susan Martin [address] [facility] [address] , [address], [place], [facility], . tel:[phone] [facility], [address] [place] [address] [address], [place], [place], [address], [place] tel:[phone] [facility] No Information Carlos Manuel-3 0-200 8 Susan Martin [address] [facility] , [address], [place], [facility], [place]. tel:[phone] Referring Provider: Estefanía Smith, [address] [facility] [address], [place], [facility]. tel:[phone] [facility], [address] [place] [address] [address], [place], [place], [address], [place] tel:[phone] [facility] No Information Carlos Manuel-2 8-200 8 Susan Martin [address] , [address], [place], [place], [facility], [place]. tel:[phone] Referring Provider: Estefanía Smith, [address], [place], [place], [facility]. tel:[phone] Office/outpat ient Visit, [facility], [address] [place] [address] [address], [place], [place], [address], [place] tel:[phone] [facility] No Information Mar-0 7-200 8 Susan José. [address] , [address], [place], [place], [facility], . tel:[phone] Referring Provider: Estefanía Smith, [address], [place], [facility]. tel:[phone] Office/outpat ient Visit, [facility], [address] [place] [address] [address], [place], [place], [address], [place] tel:[phone] [facility] No Information Jul-0 2-200 7 Susan José. [address] , [address], [place], [facility], [place]. tel:[phone] [facility], [address] [place] [address] [address], [place], [place], [address], [place] tel:[phone] [facility] No Information Feb-2 6-200 7 Susan José. [address] [facility] , [address], [place], [facility], [place]. tel:[phone] Referring Provider: Estefanía Smith, [address], [place], [facility]. tel:[phone] [facility], [address] [place] [address] [address], [place], [place], [address], [place] tel:[phone] [facility] No Information Feb-2 5-200 7 Susan José. [address] , [address], [place], [facility], [place]. tel:[phone] Referring Provider: Estefanía Smith, [address], [place], [facility]. tel:[phone] Office/outpat ient Visit, [facility], [address] [place] [address] [address], [place], [place], [address], [place] tel:[phone] [facility] No Information Oct-2 3-200 7 Susan José. [address] , [address], [place], [address], [place]. tel:[phone] Family History Family Member Type Diagnosis Age At Onset No Information Payers Payer name Insurance type Covered democrat ID Sonya martinez(s) [place] [id number] [facility] Commercial CI [id number] Social History Type Description Quantity Date Captured [...]
--- OUTSIDE RECORDS SUMMARY | 2025-01-10 12:32 | XMS_ITS | Clinical Summary ---
Author Organization [facility] Address [address] [facility] [place] [address] Care Team Providers Care Final Finisher Name Role Phone Kiran King MD Primary Care Provider + Source Comments [facility],non-[facility] Affiliates and Associated Physician Practices is amultiple site organization consisting of ambulatory clinics and hospital sitesin [place], [place], [place] and [place]. This disclosure is being madepursuant to the Care Everywhere program and may not contain all information available regarding this patient. Last updated 18.[facility] [employer] Allergies No known active allergies Medications * [...] on file Legal Sex Male 5:57 PM BEAD WRAPPER Gender Identity Not on file Sexual Orientation Not on file Last Filed Vital Signs Vital Sign Reading Time Taken Comments Blood Pressure 117/71 09/20/2020 7:51 AM BEAD WRAPPER Pulse 67 09/20/2020 7:51 AM BEAD WRAPPER Temperature - - Respiratory Rate - - Oxygen Saturation 97% 03/06/2016 9:19 AM CDT Inhaled Oxygen Concentration - - Weight 69.4 kg (153 lb) 09/20/2020 7:51 AM BEAD WRAPPER Height 166.4 cm (5' 5.5 ) 09/20/2020 7:51 AM BEAD WRAPPER Body Mass Index 25.07 09/20/2020 7:51 AM BEAD WRAPPER Plan of Treatment Health Maintenance Due Date [...] age to complete this topic Insurance MEDICARE [facility] Care Teams Final Finisher Relationship Specialty Start Date End Date Kiran King MD [address] [address] PCP - General 07/03/13
--- NOTE | 2025-01-10 13:09 | ED.EPISTAXIS ---
HPI - Epistaxis General Chief complaint: Epistaxis Stated complaint: epistaxis Time Seen by Provider: 01/10/25 12:25 History of Present Illness HPI Narrative: 89-year-old male with a past medical history including atrial fibrillation and chronic anticoagulation with Eliquis 5 mg b.i.d.. He presents to the emergency room with right-sided epistaxis for about 1-2 hours. States he was trying clear his throat and nose 4th started. No history of severe epistaxis before. He applied direct pressure in bleeding is controlled upon arrival to the emergency department. Denies any recent injuries or illnesses been no shortness of breath, lightheadedness, nausea or syncope. Denies any active bleeding at this time. No trauma or injury. Related Data Home Medications ?Medication ?Instructions ?Recorded ?Confirmed ?Last Taken ?Type latanoprost 0.005 % eye drops 1 drp EACH EYE HS 06/30/23 04/21/24 06/29/23 21:00 History empagliflozin 10 mg tablet 10 mg PO DAILY 09/10/23 04/21/24 Unknown History (Jardiance) sacubitril 24 mg-valsartan 26 mg 1 tablet PO BID 09/10/23 04/21/24 Unknown History tablet (Entresto) Allergies Allergy/AdvReac Type Severity Reaction Status Date / Time No Known Allergies Allergy Unknown Verified 04/21/24 10:25 Review of Systems Review of Systems: As reviewed above in HPI [facility] Past Medical History Medical History History of prostate cancer (2007) Hx of malignant neoplasm of colon Surgical History Surgical History History of cholecystectomy (2007) Family History Family History Mother Heart disease Social History Social History Smoking packs per day: 1 Smoking cigarettes per day: 20.0 Years smoked: 30 Smoking pack-years: 30.00 Smoking status: Former smoker Second hand tobacco smoke exposure: No Alcohol intake: current Drinks per week: 7 Alcohol use details: 1 glass wine daily Substance use: never Substance use type: does not use Lack of Transportation: No Lack of Food: Never True Current Housing: I Have Housing Concerned About Future Housing: No Difficulty Paying Gas/Electric Bills: No Difficulty Paying for Meds: No Currently Unemployed: No Education: High School Diploma/GED Difficulty w/ Childcare or Family Care: No Living arrangements: with family Occupation/Education: retired Gender identity (if verbalized by the patient): Male Sexual Orientation (if Verbalized by the Patient): Straight or Heterosexual Spiritual care concerns: No Agree to blood products: Yes Exam Narrative: GENERAL: [Well-appearing, well-nourished, and in no acute distress.] HEAD: [Normocephalic, atraumatic.] EYES: [PERRLA and EOMI.] ENT: Bilateral nares with some inflamed turbinates, right-sided epistaxis now controlled without any evidence of active bleeding, no posterior oropharynx erythema or bleeding. Septum is midline without any hematoma. No evidence of trauma or bruising. NECK: Supple. CHEST: [Clear to auscultation. No respiratory distress.] HEART: [Regular rate and rhythm]. No murmur heard. [Normal peripheral pulses.] ABDOMEN: [Soft, nondistended], [nontender], [No rigidity or guarding] EXTREMITIES: Normal range of motion. [No edema.] SKIN: Warm, dry, no rash. NEURO: [No focal deficits]. Alert and oriented [x3.] PSYCH: [Normal mood and affect.] Course Vital Signs Vital signs: Vital Signs Temperature 36.2 C L 01/10/25 11:57 Pulse Rate 81 01/10/25 11:57 Respiratory Rate 18 01/10/25 11:57 Blood Pressure 114/78 01/10/25 11:57 Pulse Oximetry 99 01/10/25 11:57 Temperature 36.2 C L 01/10/25 11:57 Pulse Rate 81 01/10/25 11:57 Respiratory Rate 18 01/10/25 11:57 Blood Pressure 114/78 01/10/25 11:57 Pulse Oximetry 99 01/10/25 11:57 MDM - Epistaxis MDM Narrative Medical decision making narrative: 89-year-old male with history of atrial fibrillation on chronic anticoagulation with Eliquis presenting with right-sided epistaxis. Epistaxis is resolved upon arrival to the emergency department but last approximate 1.5 hours. Patient has no symptomatology at this time such as lightheadedness, dizziness, vertigo or nausea. Normal vital signs, he does have some inflamed appearing turbinates and states that he was trying to clear his nose and throat when this started. Given the controlled bleeding at this time without any recurrent in the emergency department we did administer phenylephrine for his inflamed turbinates and for helping constrict the blood vessels in this area. He was given Afrin upon discharge instructions on how to use it with indications being recurrence of his epistaxis. He will follow up with his regular doctor and encouraged to continue taking his Eliquis as prescribed. He was given return precautions which him and his family verbalized understanding prior to safe discharge home. Medical Records Attestation: I reviewed the patient's medical records. Discharge Plan Discharge Clinical Impression: Acute anterior epistaxis Patient Disposition: Home Condition: Stable Instructions: Antibiotic Form Additional Instructions: If you have any recurrent severe epistaxis take the Afrin and applied to a cotton swab and inserted in the nose for direct tamponade. If this is not controlling the bleeding restarted experiencing symptoms such as lightheadedness, dizziness or passing out please return to the emergency department otherwise follow-up with your regular doctors. Patient Language: [place] Prescriptions: No Action Jardiance 10 mg tablet 10 mg PO DAILY Entresto 24-26 mg tablet 1 tablet PO BID latanoprost 0.005 % drops 1 drp EACH EYE HS aspirin [Children's Aspirin] 81 mg Tablet,Chewable 81 mg PO DAILY@0800 30 Days Qty: 30 0RF Eliquis 5 mg Tablet 5 mg PO Q12HR 30 Days Qty: 60 0RF ipratropium bromide 42 mcg (0.06 %) spray,non-aerosol 2 spray intranasal TID PRN (Reason: nasal drainage) Qty: 15 5RF Rx Instructions: administer into each nostril metoprolol tartrate 50 mg tablet See Rx Instructions .ROUTE .COMPLEX Qty: 180 0RF Dose Instruction: TAKE 1 TABLET BY MOUTH EVERY 12 HOURS Rx Instructions: TAKE 1 TABLET BY MOUTH EVERY 12 HOURS Follow-up/Referrals: Kiran King MD [Primary Care Provider] - Time of Disposition: 13:09
[2025-01-10] MEDS: OXYMETAZOLINE HCL 0.05% NAS 15 ML BTL (*BKC) 2 SPRAY NASAL (13:21)
== END 2025-01-10 13:46 | disposition home or self-care (01) ==
PROVIDERS: Emergency Provider Student in an Organized Health Care Education/Training Program; PCP Family Medicine Adolescent Medicine
DX: R04.0 Epistaxis (principal); I48.91 Unspecified atrial fibrillation; Z85.46 Personal history of malignant neoplasm of prostate; Z85.038 Personal history of other malignant neoplasm of large intestine; Z87.891 Personal history of nicotine dependence; Z90.49 Acquired absence of other specified parts of digestive tract; Z79.01 Long term (current) use of anticoagulants; Z79.84 Long term (current) use of oral hypoglycemic drugs; Z79.899 Other long term (current) drug therapy
CPT/HCPCS: 99283; A9270

== ENCOUNTER 2025-07-16 12:49 | Outpatient (CLI) | payer MEDICARE, OTHER, SELFPAY ==
--- OUTSIDE RECORDS SUMMARY | 2010-06-20 07:30 | XMS_ITS | Continuity of Care Document ---
Author Organization [facility] Address [address] [place] [address] Phone Care Team Providers Care Research Interviewer Name Role Phone Estefanía Davis Unavailable Unavailable Procedures Procedure Date Office/outpatient Visit, Est Optic Nerve Head Eval IPO Reduced 15% Fundus Photography W/ Report Office/outpatient Visit, Est Optic Nerve Head Eval IPO Reduced 15% Visual Field Examination-Professional Luis Visual Field Examination(s) Office/outpatient Visit, Est Optic Nerve Head Eval IPO Reduced 15% Office/outpatient Visit, Est Optic Nerve Head Eval Visual Field Examination-Professional Ju -2007 Visual Field Examination(s) Office/outpatient Visit, Est Optic Nerve Head Eval Fundus Photography W/ Report Office/outpatient Visit, Est Optic Nerve Head Eval Visual Field Examination-Professional Ruma -2006 Visual Field Examination(s) Office/outpatient Visit, Est Advance Directives Directive Yes / No Effective Date File Name No Information Encounters Encounter Description Practice Location Reason(s) For Visit Diagnoses Date Provider Providers Copied on Encounter Office/outpat ient Visit, Est [facility], [address], [place], [place], [id number], [place] tel:[phone] [facility] No Information Oct-0 5-201 0 Susan José. [address] , [address], [place], [place], [facility], . tel:[phone] Referring Provider: Estefanía Smith, [address], [place], [place], [facility]. tel:[phone] Office/outpat ient Visit, [facility], [address] [place] [address] [address], [place], [place], [id number], tel:[phone] [facility] No Information May-0 4-201 0 Susan José. [address] , [address], [place], [place], [facility], . tel:[phone] Referring Provider: Estefanía Smith, [address], [place], [facility]. tel:[phone] [facility], [address] [place] [address] [address], [place], [place], [id number], tel:[phone] [facility] No Information Duane-0 5-201 0 Susan José. [facility] , [address], [place], [facility], [place]. tel:[phone] Referring Provider: Estefanía Smith, [facility] [address], [place], [facility]. tel:[phone] [facility], [address] [place] [address] [address], [place], [place], [id number], tel:[phone] [facility] No Information Duane-0 4-201 0 Susan José. [address] , [address], [place], [facility], . tel:[phone] Referring Provider: Estefanía Smith, [address], [place], [facility]. tel:[phone] Office/outpat ient Visit, [facility], [address] [place] [address] [address], [place], [place], [id number], [place] tel:[phone] [facility] No Information Apr-3 0-200 9 Susan Martin [address] , [address], [place], [facility], . tel:[phone] Office/outpat ient Visit, [facility], [address] [place] [address] [address], [place], [place], [id number], [place] tel:[phone] [facility] No Information Dec-0 5-200 8 Susan Martin [address] , [address], [place], [facility], . tel:[phone] [facility], [address] [place] [address] [address], [place], [place], [id number], [place] tel:[phone] [facility] No Information Carlos Manuel-3 0-200 8 Susan Martin [address] , [address], [place], [facility], [place]. tel:[phone] Referring Provider: Estefanía Smith, [address], [place], [facility]. tel:[phone] [facility], [address] [place] [address] [address], [place], [place], [address], [place] tel:[phone] [facility] No Information Carlos Manuel-2 8-200 8 Susan Martin [address] , [address], [place], [facility], [place]. tel:[phone] Referring Provider: Estefanía Smith, [address], [place], [facility]. tel:[phone] Office/outpat ient Visit, [facility], [address] [place] [address] [address], [place], [place], [id number], [place] tel:[phone] [facility] No Information Mar-0 7-200 8 Susan José. [address] , [address], [place], [facility], . tel:[phone] Referring Provider: Estefanía Smith, [address], [place], [facility]. tel:[phone] Office/outpat ient Visit, [facility], [address] [place] [address] [address], [place], [place], [address], [place] tel:[phone] [facility] No Information Jul-0 2-200 7 Susan José. [address] , [address], [place], [facility], [place]. tel:[phone] [facility], [address] [place] [address] [address], [place], [place], [address], [place] tel:[phone] [facility] No Information Feb-2 6-200 7 Susan José. [address] , [address], [place], [facility], [place]. tel:[phone] Referring Provider: Estefanía Smith, [address], [place], [facility]. tel:[phone] [facility], [address] [place] [address] [address], [place], [place], [id number], [place] tel:[phone] [facility] No Information Feb-2 5-200 7 Susan José. [address] , [address], [place], [facility], [place]. tel:[phone] Referring Provider: Estefanía Smith, [address], [place], [facility]. tel:[phone] Office/outpat ient Visit, [facility], [address] [place] [address] [address], [place], [place], [address], [place] tel:[phone] [facility] No Information Oct-2 3-200 7 Susan José. [address] , [address], [place], [address], [place]. tel:[phone] Family History Family Member Type Diagnosis Age At Onset No Information Payers Payer name Insurance type Covered alliance party ID Sonya martinez(s) [place] CI [id number] [facility] Commercial CI [id number] Social History Type Description Quantity Date Captured Comments Sex Male Smoking Status No Information Chief Complaint And Reason For Visit No Information Reason For Referral Reason For Referral No Information History Of Present Illness Encounter Date Complaint History Of Prese nt Illness No Information Functional Status Date Functional Assessmen t No Information Instructions Date Instruction Additional Infor mation No Information Assessments Type Assessment Date No Information Patient Care Teams Name Effective Dates (start - stop) Status Members No Information
--- OUTSIDE RECORDS SUMMARY | 2025-07-16 12:54 | XMS_ITS | Encounter Summary ---
Author Organization [facility] Address [address] [place] [address] Care Team Providers Care Stunt Person Name Role Phone Kiran King MD Primary Care Provider + Encounter Details Date Type Department Care Team (Late st Contact Info) Description 08/03/2020 Lab Requisition [facility] [address] [place] [id number] Demarcus Smith MD [address] [place] [address] Social History Tobacco Use Types Packs/Day Years Used Date Smoking Tobacco: Former Alcohol Use Standard Drinks/Week Comments Yes 0 (1 standard drink = 0.6 oz pur e alcohol) Sex and Gender Information Value Date Recorded Sex Assigned at Not on file Legal Sex Male 5:57 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 Gender Identity Not on file Sexual Orientation Not on file documented as of this encounter Plan of Treatment Not on file documented as of this encounter Procedures Procedure Name Priority Date/Time Associated Diagnosis Comments DERMATOPATHOLOGY Routine 08/02/2020 12:0 0 AM HEADLIGHT ASSEMBLER documented in this encounter Results * DERMATOPATHOLOGY (08/02/2020 12:00 AM HEADLIGHT ASSEMBLER) Case Report Dermatopathology Report Case: [id number] Authorizing Provider: Demarcus Smith MD Collected: 08/02/2020 12:00 AM Ordering Location: [facility] Received: 08/03/2020 01:05 PM Pathologist: Roseanne Gonzalez MD Specimens: A) - Skin, left nasal tip B) - Skin, right lateral alar rim C) - Skin, left lateral ala D) - Skin, floor of right nostril 0 4:15 PM [facility] DERMAT[facility]ATH[facility]Y [facility]OR[facility] Final Diagnosis Specimen A. SKIN, left nasal tip: BASAL CELL CARCINOMA (C44.311) (see microscopic description and comment) Specimen B. SKIN, right lateral alar rim: BASAL CELL CARCINOMA (C44.212) (see microscopic description and comment) Specimen C. SKIN, left lateral ala: INTRADERMAL MELANOCYTIC NEVUS (D22.39) Specimen D. SKIN, floor of right nostril: INTRADERMAL MELANOCYTIC NEVUS (D22.39) 0 4:15 PM [facility] DERMATOPATH[facility]Y [facility]OR[facility] at [address] HEADLIGHT ASSEMBLER Clinical History A-D: R/O BCC, SCC. 0 4:15 PM [facility]ERMATOPATH[facility]Y [facility] Gross Description Specimen A: Received is one formalin filled container labeled with the patient's name and designated left nasal tip. The specimen consists of a shave biopsy measuring [id number]. Jar 0. Specimen B: Received is one formalin filled container labeled with the patient's name and designated right lateral alar rim. The specimen consists of a shave biopsy (2 pieces) measuring [id number] & [id number]. Jar 0. Specimen C: Received is one formalin filled container labeled with the patient's name and designated left lateral ala. The specimen consists of a shave biopsy measuring [id number]. Jar 0. Specimen D: Received is one formalin filled container labeled with the patient's name and designated floor of right nostril. The specimen consists of a shave biopsy measuring [id number]. Jar 0. 0 4:15 PM [facility] Microscopic Description Specimen [...] that mature with depth. 0 4:15 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 DERMATOPATHOLOGY LABORATORY Disclaimer An external and internal positive and negative controls are appropriate for the histochemical, immunohistochemical and immunofluorescence stain(s) in this case (if any), except where stated explicitly. The performance characteristics of the stain(s) cited in this report were developed and its performance characteristic determined by the Dermatopathology Laboratory at [facility], directed by Dr. Christine Rodriguez. These tests need not be, and therefore are not, approved by the [place] Food and Drug Administration. The tests are used for clinical purposes. Billing Codes Specimen Charges Stain Charges 49289 96901 [id number] 52614 1 1 1 1 0 4:15 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 DERMATOPATHOLOGY LABORATORY Embedded Images 0 4:15 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 DERMATOPATHOLOGY LABORATORY Pathology/Cytology TISSUE SPECIMEN FROM SKIN / Unknown 08/02/2020 08/03/2020 1:05 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 Miscellaneous samples (specimen) TISSUE SPECIMEN FROM SKIN / Unknown 08/02/2020 08/03/2020 1:05 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 Miscellaneous samples (specimen) TISSUE SPECIMEN FROM SKIN / Unknown 08/02/2020 08/03/2020 1:05 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 Miscellaneous samples (specimen) TISSUE SPECIMEN FROM SKIN / Unknown 08/02/2020 08/03/2020 1:05 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 Demarcus Smith MD LAB - PATHOLOGY/CYTOLOGY ORD ERABLES Final Result DERMATOPATHOLOGY LABORATORY [facility] - Department of Dermatology [facility] [address] [place] [address], [address] [place] [address], [facility] [phone] documented in this encounter Visit Diagnoses Not on filedocumented in this encounter Care Teams Stunt Person Relationship Specialty Start Date End Date Kiran King MD [address] [place] [id number] PCP - General 07/03/13 documented as of this encounter
--- OUTSIDE RECORDS SUMMARY | 2025-07-16 12:54 | XMS_ITS | Clinical Summary ---
Author Organization [facility] Address [address] [place] [address] Care Team Providers Care Machine Heel Sprayer Name Role Phone Kiran King MD Primary Care Provider + Source Comments [facility] Affiliates and Associated Physician Practices is amultiple site organization consisting of ambulatory clinics and hospital sitesin [place], [place], [place] and [place]. This disclosure is being madepursuant to the Care Everywhere program and may not contain all information available regarding this patient. 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 Gender Identity Not on file Sexual Orientation Not on file Last Filed Vital Signs Vital Sign Reading Time Taken Comments Blood Pressure 117/71 09/20/2020 7:51 AM GLASSWARE DEFECT REPAIRER Pulse 67 09/20/2020 7:51 AM GLASSWARE DEFECT REPAIRER Temperature - - Respiratory Rate - - Oxygen Saturation 97% 03/06/2016 9:19 AM CDT Inhaled Oxygen Concentration - - Weight 69.4 kg (153 lb) 09/20/2020 7:51 AM GLASSWARE DEFECT REPAIRER Height 166.4 cm (5' 5.5) 09/20/2020 7:51 AM GLASSWARE DEFECT REPAIRER Body Mass Index 25.07 09/20/2020 7:51 AM GLASSWARE DEFECT REPAIRER Plan of Treatment Health Maintenance Due Date Last Done Comments DTAP/TDAP/TD VACCINES (1 - Tdap) 1955 PNEUMOCOCCAL VACCINE 50+ (1 of 1 - PCV) 1986 ZOSTER VACCINE (1 of 2) 1986 Respiratory Syncytial Virus (RSV) Vaccine Pt: or over 60 yrs (1 - 1-dose 75+ series) 2011 DEPRESSION SCREENING 09/16/2024 COVID-19 VACCINE ( - 2023-2 5 season) 2025 INFLUENZA VACCINE (#1) 2025 HEPATITIS B VACCINE Aged Out No [...] age to complete this topic Insurance MEDICARE [facility] Care Teams Machine Heel Sprayer Relationship Specialty Start Date End Date Kiran King MD [phone] [address] PCP - General 07/03/13
== END 2025-07-16 12:50 | disposition home or self-care (01) ==
LOC: ANHAUDIO 12:51
PROVIDERS: PCP Family Medicine Adolescent Medicine; Visit Provider Otolaryngology
DX: H90.3 Sensorineural hearing loss, bilateral (principal)
CPT/HCPCS: 92557; 92567